=== PATIENT | female | born 1950 | race Caucasian/White ===

== ENCOUNTER 2019-07-08 05:15 | Emergency (ER) | payer OTHER, MEDICARE ==
--- OUTSIDE RECORDS SUMMARY | 2019-07-08 05:17 | XMS REPORT | Clinical Summary ---
:1950 Author Organization [facility] Address [address] [place] [address] Care Team Providers Name Role Phone Nohemi Vargas MD Primary Care Provider Allergies Active Allergy Reactions Severity Noted Date Comments Bee Venom Protein (Honey Swelling, Rash High 08/23/2018 Swelling of bee sting Bee) site Morphine Sulfate Rash Low 04/08/2015 Sulfa (Sulfonamide Rash Low 04/08/2015 Antibiotics) Medications Medication Sig Dispensed Refills Start End Status Date Date levothyroxine Take 112 mcg 0 Active (SYNTHROID, LEVOXYL) by mouth every 112 mcg tablet morning. oxybutynin (DITROPAN) Take 5 mg by 0 Active 5 mg/5 mL syrup mouth 2 (two) times a day. pantoprazole Take 40 mg by 0 Active (PROTONIX) 40 MG EC mouth daily. tablet PARoxetine (PAXIL) 20 Take 20 mg by 0 Active MG tablet mouth every morning. aspirin (ECOTRIN) 81 Take 81 mg by 0 Active MG enteric coated mouth daily. tablet meloxicam (MOBIC) 15 Take 1 tablet 90 tablet 0 09/25/20 Active mg tablet (15 mg total) 18 by mouth daily. cyclobenzaprine Take 10 mg by 0 01/01/20 Active (FLEXERIL) 10 mg mouth as 19 tablet needed. ciclopirox (LOPROX) Apply 1 0 12/26/19 Active 0.77 % suspension application 19 topically daily. zolpidem (AMBIEN) 10 zolpidem 10 mg 0 Active mg tablet tablet fluticasone (FLONASE) 2 sprays by 0 Active 50 mcg/actuation nasal Each Nare spray route daily. promethazine Take 25 mg by 0 Active (PHENERGAN) 25 MG mouth every 6 tablet (six) hours as needed for nausea or vomiting (to start after surgery as per md order). gentamicin (GARAMYCIN) Apply 1 0 Active 0.1 % ointment application topically daily. cyanocobalamin, Take 1 tablet 0 Active vitamin B-12, (VITAMIN by mouth B-12 ORAL) daily. BIOTIN ORAL Take 1 tablet 0 Active by mouth daily. ascorbic acid, vitamin Take 1,000 mg 0 Active C, (vitamin C) 1000 MG by mouth tablet daily. calcium carbonate Take 1 tablet 0 Active (CALCIUM 500 ORAL) by mouth daily. vitamin E 400 UNIT Take 400 Units 0 Active capsule by mouth daily. cholecalciferol, Take 2,000 0 Active vitamin D3, (VITAMIN Units by mouth D3) 2,000 unit capsule daily. capsule omega-3/dha/epa/fish Take 1 tablet 0 Active oil (FISH OIL HIGH by mouth POTENCY ORAL) daily. magnesium oxide Take 400 mg by 0 Active (MAG-OX) 400 mg (241.3 mouth daily. mg magnesium) tablet potassium 99 mg tablet Take 1 tablet 0 Active by mouth daily. meloxicam (MOBIC) 15 Take 1 tablet 30 tablet 1 08/24/20 Discontinued mg tablet (15 mg total) 18 018 (Reorder) by mouth daily. meloxicam (MOBIC) 15 Take 1 tablet 30 tablet 2 12/04/19 Discontinued mg tablet (15 mg total) 19 019 by mouth daily. Start the Mobic AFTER you finish the Medrol Dose [place] methylPREDNISolone Take as directed 21 tablet 0 12/04/19 (MEDROL[place],) 4 mg 19 019 tablet Dispense 1 pack fenoprofen (NALFON) Take 400 mg by 90 capsule 1 12/25/19 400 mg capsule mouth 3 019 (three) times a day for 30 days. Additional information Patient taking differently: 400 mg oral PRN, Informant: Self, Reported on 8:43 AM cephalexin (KEFLEX) Take 1 capsule 8 capsule 0 01/07/2019 01/09/2019 500 MG capsule (500 mg total) by mouth every 6 (six) hours for 2 days. To begin after surgery promethazine Take 1 tablet (25 20 tablet 0 01/07/2019 01/08/2019 Discontinued (PHENERGAN) 25 MG mg total) by tablet mouth every 6 (six) hours as needed for nausea or vomiting for up to 30 days. To begin after surgery gentamicin 0 12/26/2018 01/08/2019 Discontinued (GARAMYCIN) 0.3 % ophthalmic solution HYDROcodone-acetamino Take 1 tablet by 60 tablet 0 01/08/2019 02/07/2019 phen (NORCO) 10-325 mouth every 4 mg per tablet (four) hours as needed for moderate pain for up to 30 days. Max Daily Amount: 6 tablets Active Problems Problem Noted Date Sprain of right rotator cuff capsule 01/04/2019 Overview: Added automatically from request for surgery [id number] Encounters Date Type Specialty Care Team Description 06/10/2019 Office Visit Orthopedic Surgery Dami Bonilla S/Ramy rotator cuff repair MD Amparo (Primary Dx) 04/18/2019 Office Visit Orthopedic Surgery Dami Bonilla S/Ramy rotator cuff repair (Primary Dx); MD Amparo Complete tear of right rotator cuff 03/07/2019 Office Visit Orthopedic Surgery Dami Bonilla Complete tear of right MD Amparo rotator cuff (Primary Dx) 02/14/2019 Office Visit Orthopedic Surgery Dami Bonilla Complete tear of right MD Amparo rotator cuff (Primary Dx) 02/05/2019 Telephone Orthopedic Surgery Quita Vora MA 01/23/2019 Telephone Orthopedic Surgery Quita Vora MA 01/16/2019 Office Visit Orthopedic Surgery Dena, Complete tear of right Leonardo Pineda, rotator cuff (Primary PA Dx) 01/10/2019 Telephone Anesthesiology Soniya Bush, CHANDA 01/09/2019 Anesthesia Event General Surgery Xenia Lopez MD Cheema, Ivelisse, FNP 01/09/2019 Surgery General Surgery Dami Bonilla Right Arthroscopy of MD Amparo the Shoulder with Decompression and Acromioclavicular resection and debridement of loose body, and Open Rotator Cuff Repair 01/09/2019 Hospital General Surgery Dami Bonilla Sprain of right rotator Encounter MD Amparo cuff capsule, subsequent encounter (Primary Dx) 01/08/2019 Pre-Admit Testing Pre-Admission Dami Bonilla Preop testing ( Primary Appointment Testing MD Amparo Dx) 01/08/2019 Orders Only Orthopedic Surgery Quita Vora MA 01/08/2019 Orders Only Orthopedic Surgery Anabel Villegas Sprain of right rotator cuff capsule, initial encounter (Primary Dx) 01/07/2019 Orders Only Orthopedic Surgery Leonardo Fernandes PA 01/04/2019 Orders Only Orthopedic Surgery Gurinder Keating MA 01/04/2019 Transcribe Orders Orthopedic Surgery Dami Bonilla Sprain of right rotator MD Amparo cuff capsule, initial encounter (Primary Dx) 01/03/2019 Office Visit Orthopedic Surgery Dami Bonilla Complete tear of right MD Amparo rotator cuff (Primary Dx) 01/03/2019 Hospital Radiology Dami Bonilla Complete tear of right Encounter MD Amparo rotator cuff 12/25/2018 Office Visit Orthopedic Surgery Dami Bonilla Complete tear of right MD Amparo rotator cuff (Primary Dx) 12/04/2018 Office Visit Orthopedic Surgery Dami Bonilla Strain of right MD Amparo shoulder, initial encounter (Primary Dx) 09/25/2018 Office Visit Orthopedic Surgery Dami Bonilla Impingement syndrome of MD Amparo right shoulder (Primary Dx) 08/24/2018 Refill Orthopedic Surgery Bhavya Arthur MA 08/23/2018 Office Visit Orthopedic Surgery Dami Bonilla Complete tear of right MD Amparo rotator cuff (Primary Dx) 08/23/2018 Hospital Radiology Dami Bonilla Encounter MD Amparo [facility]/23[facility]2018 [facility] Complete tear of right Encounter MD Amparo rotator cuff 08/23/2018 Office Visit Orthopedic Surgery Dami Bonilla Complete tear of right rotator cuff (Primary Dx); MD Amparo Right shoulder pain, unspecified chronicity after 07/07/2018 Immunizations Name Administration Dates Next Due Influenza, Unspecified 08/29/2018 Pneumococcal, Unspecified 09/18/2018 Tdap 08/24/2017 Family History Medical History Relation Name Comments Hyperlipidemia Father Hypertension Father Stroke Father Heart disease Mother Hyperlipidemia Mother Lupus Mother Relation Name Status Comments Brother Alive Brother Father Mother Sister Son Alive Social History Tobacco Use Types Packs/Day Years Used Date Never Smoker Smokeless Tobacco: Never Used Alcohol Use Drinks/Week oz/Week Comments Yes 1 Standard drinks or equivalent 2.0 - 3.0 occassionally 1-2 Glasses of wine Alcohol Habits Answer Date Recorded How often do you have a drink containing alcohol? Never 01/08/2019 How many drinks containing alcohol do you have on a typical Not asked day when you are drinking? How often do you have six or more drinks on one occasion? Not asked Sex Assigned at Date Recorded Not on file Job Start Date Occupation Industry Not on file Not on file Not on file Travel History Travel Start Travel End No recent travel history available. Last Filed Vital Signs Vital Sign Reading Time Taken Comments Blood Pressure 124/75 01/09/2019 1:45 PM SHAFT TENDER Pulse 69 01/09/2019 1:45 PM SHAFT TENDER Temperature 36.8 C (98.3 F) 01/09/2019 1:00 PM SHAFT TENDER Respiratory Rate 16 01/09/2019 1:45 PM SHAFT TENDER Oxygen Saturation 93% 01/09/2019 1:45 PM SHAFT TENDER Inhaled Oxygen Concentration - - Weight 78.7 kg (173 lb 8 oz) 01/08/2019 8:31 AM SHAFT TENDER Height 167.6 cm (5' 6") 01/08/2019 8:31 AM SHAFT TENDER Body Mass Index 28 01/08/2019 8:31 AM SHAFT TENDER Plan of Treatment Date Type Specialty Care Team Description 07/23/2019 Office Visit [place] [address] [place], [place] [id number] Health Maintenance Due Date Last Done Comments BREAST CANCER SCREENING 2001 COLONOSCOPY SCREENING 2001 SHINGLES VACCINES (#1) 2001 INFLUENZA VACCINE 06/20/2019 08/29/2018, 08/13/2018, 09/19/2016, Additional history exists 65+ PNEUMOCOCCAL VACCINE (2 of 2 - 09/18/2019 09/18/2018, 11/29/2017, PPSV23) 07/31/2015 Implants Implanted Type Area Revenue Officer Device Shelf Model / Identifier Expiration Serial / Date Lot [place] [employer] Knotless Br Biocmpst W/ Orthocord 5.5mm - [id number] Orthopedic Right: DEPUY MITEK 04/19/2021 [id number] / Implanted: Qty: 1 on 01/09/2019 by Dami Bonilla MD at [facility] Trauma Shoulder / Implants [id number] [place] [employer] Knotless Br Biocmpst W/ Orthocord 5.5mm - [id number] Orthopedic Right: DEPUY MITEK 04/19/2021 [id number] / Implanted: Qty: 1 on 01/09/2019 by Dami Bonilla MD at [facility] Trauma Shoulder / Implants [id number] Procedures Procedure Name Priority Date/Time Associated Diagnosis Comments VT AN PERIPHERAL BLOCK Routine 01/09/2019 8:47 AM POST-OP PAIN SHAFT TENDER Procedure Note - Xenia Lopez MD - 01/09/2019 8:47 AM SHAFT TENDER Peripheral Block Performed by: Xenia Lopez MD Authorized by: Xenia Lopez MD Patient Location: Block room Start Time: 01/09/2019 8:39 AM End Time: 01/09/2019 8:47 AM Reason for Block: at surgeon's request, post-op pain management Staff: Anesthesiologist: Xenia Lopez MD Performed by: Anesthesiologist Preprocedure: patient identified, IV checked, site and side verified, risks and benefits discussed, procedure verified, surgical consent complete, patient position confirmed, monitors and equipment checked, pre-op evaluation complete and site marked Time Out Performed: 01/09/2019 8:39 AM Peripheral Nerve Block: Patient Position: Left lateral decubitus Prep: ChloraPrep Monitoring: Blood pressure monitoring and continuous pulse oximetry Block Type: Interscalene Laterality: Right Injection Technique: Catheter insertion Procedures: ultrasound guided and nerve stimulator Ultrasound documentation: Printed/placed in chart Local Infiltration (See MAR for details): Ropivacaine Loss of Twitch: 0.5 mA Needle: Needle Type: Merry Needle Gauge: 19 G Needle Length: 10 cm Catheter size: 20g. Catheter at Skin Depth: 7 cm Assessment: Injection Assessment: Visualized needle/local anesthetic surrounding nerve , visualized pertinent vascular structures and nerves, needle tip visualized at all times during injection of medication, intermittent aspiration during local anesthetic administration and no symptoms of intraneural/intravenous injection Paresthesia Pain: None Heart Rate Change: No Slow Fractionated Injection: Yes Block outcome: No apparent complications, patient comfortable and patient tolerated procedure well Notes: Care returned to holding RN, patient given call button POC GLUCOSE Routine 01/09/2019 8:11 Results for this AM SHAFT TENDER procedure are in the results section. ESTIMATED GFR Routine 01/08/2019 9:38 Results for this AM SHAFT TENDER procedure are in the results section. HC COMPLETE BLD COUNT Routine 01/08/2019 9:38 Preop testing Results for this W/AUTO DIFF AM SHAFT TENDER procedure are in the results section. BASIC METABOLIC PANEL Routine 01/08/2019 9:38 Preop testing Results for this AM SHAFT TENDER procedure are in the results section. MRI SHOULDER WO Routine 01/03/2019 1:33 Complete tear of Results for this CONTRAST RIGHT PM SHAFT TENDER right rotator cuff procedure are in the results section. VT ARTHROCENTESIS Routine 12/25/2018 10:00 Complete tear of Results for this ASPIR&/INJ MAJOR AM SHAFT TENDER right rotator cuff procedure are in JT/BURSA W/O US the results section. VT ARTHROCENTESIS Routine 08/23/2018 2:20 Complete tear of Results for this ASPIR&/INJ MAJOR PM CDT right rotator cuff procedure are in JT/BURSA W/O US the results section. MRI SHOULDER WO STAT 08/23/2018 1:31 Complete tear of Results for this CONTRAST RIGHT PM CDT right rotator cuff procedure are in the results section. XR SHOULDER 2+ VW RIGHT Routine 08/23/2018 9:50 Right shoulder Results for this AM CDT pain, unspecified procedure are in chronicity the results section. after 07/07/2018 Results POC glucose (01/09/2019 8:11 AM SHAFT TENDER) Pathologist [facility] POC glucose 102 (H) 65 - 99 mg/dL NICKOLAS MARSH Comment: [facility] No Action Needed Meter ID: [id number] Health And Safety Tech: Hussein Espinoza Specimen Performing Organization Address City/State/Zipcode Phone Number [facility] DEPARTMENT OF PATHOLOGY [address] [place] [address] AND GENOMIC MEDICINE NICKOLAS MARSH [place] [address] Estimated GFR (01/08/2019 9:38 AM SHAFT TENDER) [facility] Estimated GFR 77 mL/min/1.73 NICKOLAS MARSH Comment: m2 [place] CatergoryUnitsInterpretation [facility] G1 >=90 Normal or high G2 60-89Mildly decreased L3w88-55Omrdfg to moderately decreased D7b20-90Tutnyfaprt to severely decreased G4 15-29Severely decreased G5 <15Kidney failure The eGFR was calculated using the Chronic Kidney Disease Epidemiology Collaboration (CKD-EPI) equation. Interpretation is based on recommendations of the National Kidney Foundation-Kidney Disease Outcomes Quality Initiative (NKF-KDOQI) published in 2014. Specimen Plasma specimen Performing Organization Address City/[facility]/Zipcode Phone Number [facility] DEPARTMENT OF PATHOLOGY [address] [place] [address] AND [facility] [id number] [place] [address] HOSPITAL CBC with platelet and differential (01/08/2019 9:38 AM SHAFT TENDER) WBC 5.0 4.5 - 11.0 k/uL [facility] RBC 4.58 4.20 - 5.50 [facility] m/uL [facility] HGB 13.8 12.0 - 16.0 [facility] g/dL [facility] HCT 43.2 37.0 - 47.0 % [facility] MCV 94.3 82.0 - 100.0 fL [facility] MCH 30.1 27.0 - 34.0 pg [facility] MCHC 31.9 31.0 - 37.0 [facility] g/[facility] RDW - SD 41.2 37.0 - 55.0 fL [facility] MPV 10.7 6.9 - 11.0 fL [facility] Platelet count 155 150 - 400 K/uL [facility] Nucleated RBC 0.00 /100 WBC [facility] Neutrophils 48.9 39.0 - 69.0 % [facility] Lymphocytes 35.7 25.0 - 45.0 % [facility] Monocytes 10.4 (H) 0.0 - 10.0 % [facility] Eosinophils 4.2 0.0 - 5.0 % [facility] Basophils 0.4 0.0 - 1.0 % [facility] Immature granulocytes 0.4 0.0 - 1.0 % [facility] Specimen Blood Performing Organization Address City/[facility]/Zipcode Phone Number [facility] DEPARTMENT OF PATHOLOGY [address] [place] [address] AND [facility] [id number] [place] [address] Basic metabolic panel (01/08/2019 9:38 AM SHAFT TENDER) Sodium 143 135 - 148 mEq/L [facility] Potassium 4.8 3.5 - 5.0 mEq/L [facility] Chloride 102 98 - 112 mEq/L [facility] CO2 31 24 - 31 mEq/L [facility] Anion gap 10@ANIO 7 - 15 mEq/L [facility] BUN 10 8 - 23 mg/dL [facility] Creatinine 0.79 0.50 - 0.90 mg/dL [facility] Glucose 95 65 - 99 mg/dL [facility] Calcium 9.4 8.8 - 10.2 mg/dL [facility] Specimen Plasma specimen Performing Organization Address City/State/Zipcode Phone Number [facility] DEPARTMENT OF PATHOLOGY [address] [place] [address] MRI Shoulder Wo Contrast Right (01/03/2019 1:33 PM SHAFT TENDER)Only the most recent of2 resultswithin the time period is included. Specimen Narrative Performed At EXAMINATION:MRI SHOULDER WO CONTRAST RIGHT [facility] CLINICAL HISTORY:M75.121 Complete rotator cuff tear or rupture of right shouldernot specified as traumatic, right shoulder pain TECHNIQUE:Multiplanar multisequence MR imaging of the [facility] was performed without contrast. COMPARISON:MRI right shoulder 08/23/2018 IMPRESSION: ROTATOR CUFF: Full-thickness, full width supraspinatus tear has developed in the interval, with retraction most pronounced posteriorly nearly up to the glenohumeral joint, up to 40 mm. Mild to moderate volumetric atrophy, and mild fatty peritendinous atrophy. Full-thickness, near full width infraspinatus tear with retraction nearly to the glenohumeral joint, up to 35 mm. The posterior margin is relatively spared with only partial tearing posteriorly. Interstitial tearing at the infraspinatus myotendinous junction posteriorly measuring 5 mm sagittal with retraction of 10 mm. Mild fatty atrophy, though no volumetric muscle loss. Teres minor well maintained. Low-grade interstitial partial tearing cranially in the subscapularis, otherwise well-maintained. LABRUM: Nondisplaced posterior chondral labral tear most pronounced superiorly. Surgical metal blunting elsewhere. BICEPS TENDON: The extra-articular long head biceps tendon is markedly diminutive in size, though remains normally positioned within the bicipital groove. Small mass running fluid and heterogeneous sign al indicating tenosynovitis. The intra-articular portion is not well seen, and at least partially torn GLENOHUMERAL JOINT: Superior subluxation of the humeral head in association with the massive cuff tear. Full-thickness chondral loss superiorly in the humeral head. BONE MARROW: Reactive change in the greater tuberosity related to the aforementioned cuff pathology. AC JOINT: Widening of the AC joint most pronounced anteriorly measuring 13 mm, though there is no capsular edema. Findings indicate chronic sprain. Coracoclavicular ligaments are well-maintained. Acromi on has a horizontal lateral slope and is type II morphology. SOFT TISSUES: Small joint effusion and mild synovitis in the axillary pouch. Fluid and heterogeneous signal within the subacromial-subdeltoid bursa indicating mild to moderate bursitis. Myoedema in the supraspinatus and infraspinous indicating acute on chronic process. Visualized deltoid well-maintained. SUMMARY: 1. Complete supraspinatus and near-complete infraspinatus tears with associated atrophy and mild strains, as detailed above. Low-grade interstitial partial tearing of subscapularis. 2.Atrophic long head biceps tendon with extra articular tenosynovitis, and at least high-grade partial tearing of the intra-articular portion. 3.Nondisplaced posterior chondral labral junction tear. 4.Incidental and/or degenerative changes as above. [facility]-[id number] Procedure Note Hm Interface, Radiology Results Incoming - 01/03/2019 2:13 PM SHAFT TENDER EXAMINATION: MRI SHOULDER WO CONTRAST RIGHT CLINICAL HISTORY: M75.121 Complete rotator cuff tear or rupture of right shoulder not specified as traumatic, right shoulder pain TECHNIQUE: Multiplanar multisequence MR imaging of the right shoulder was performed without contrast. COMPARISON: MRI right shoulder 08/23/2018 IMPRESSION: ROTATOR CUFF: Full-thickness, full width supraspinatus tear has developed in the interval, with retraction most pronounced posteriorly nearly up to the glenohumeral joint, up to 40 mm. Mild to moderate volumetric atrophy, and mild fatty peritendinous atrophy. Full-thickness, near full width infraspinatus tear with retraction nearly to the glenohumeral joint, up to 35 mm. The posterior margin is relatively spared with only partial tearing posteriorly. Interstitial tearing at the infraspinatus myotendinous junction posteriorly measuring 5 mm sagittal with retraction of 10 mm. Mild fatty atrophy, though no volumetric muscle loss. Teres minor well maintained. Low-grade interstitial partial tearing cranially in the subscapularis, otherwise well-maintained. LABRUM: Nondisplaced posterior chondral labral tear most pronounced superiorly. Surgical metal blunting elsewhere. BICEPS TENDON: The extra-articular long head biceps tendon is markedly diminutive in size, though remains normally positioned within the bicipital groove. Small mass running fluid and heterogeneous signal indicating tenosynovitis. The intra-articular portion is not well seen, and at least partially torn GLENOHUMERAL JOINT: Superior subluxation of the humeral head in association with the massive cuff tear. Full-thickness chondral loss superiorly in the humeral head. BONE MARROW: Reactive change in the greater tuberosity related to the aforementioned cuff pathology. AC JOINT: Widening of the AC joint most pronounced anteriorly measuring 13 mm, though there is no capsular edema. Findings indicate chronic sprain. Coracoclavicular ligaments are well-maintained. Acromion has a horizontal lateral slope and is type II morphology. SOFT TISSUES: Small joint effusion and mild synovitis in the axillary pouch. Fluid and heterogeneous signal within the subacromial-subdeltoid bursa indicating mild to moderate bursitis. Myoedema in the supraspinatus and infraspinous indicating acute on chronic process. Visualized deltoid well-maintained. SUMMARY: 1. Complete supraspinatus and near-complete infraspinatus tears with associated atrophy and mild strains, as detailed above. Low-grade interstitial partial tearing of subscapularis. 2. Atrophic long head biceps tendon with extra articular tenosynovitis, and at least high-grade partial tearing of the intra-articular portion. 3. Nondisplaced posterior chondral labral junction tear. 4. Incidental and/or degenerative changes as above. [facility]-[id number] Performing Organization Address City/State/Zipcode Phone Number [facility] [address] [place] [address] Large Joint Arthrocentesis: shoulder, R subacromial bursa (12/25/2018 10:00 AM SHAFT TENDER) Narrative Performed At Dami Bonilla MD 12/25/2018 10:25 AM Large Joint Arthrocentesis: shoulder, R subacromial bursa Consent given by: patient Timeout: Immediately prior to procedure a time out was called to verify the correct patient, procedure, equipment, desktop support consultant and site/side marked as required Supporting Documentation Indications: pain Procedure Details Preparation: Patient was prepped and draped in the usual sterile fashion Ultrasound guided: no Location: shoulder - R subacromial bursa Right side: Needle size: 22 G Approach: lateral Right shoulder medications administered: 80 mg methylPREDNISolone acetate 40 mg/mL Large Joint Arthrocentesis (08/23/2018 2:20 PM CDT) Narrative Performed At Dami Bonilla MD 08/23/20182:03 PM Large Joint Arthrocentesis Consent given by: patient Timeout: Immediately prior to procedure a time out was called to verify the correct patient, procedure, equipment, desktop support consultant and site/side marked as required Supporting Documentation Indications: pain Procedure Details Preparation: Patient was prepped and draped in the usual sterile fashion Ultrasound guided: no Location: shoulder - R subacromial bursa Right side: Needle size: 22 G Approach: lateral XR Shoulder 2+ Vw Right (08/23/2018 9:50 AM CDT) Specimen Narrative Performed At 3 views (AP, scapular Y, axillary) of the right shoulder(s) reveal no [facility] evidence of any fracture, dislocation, or any other acute osseous abnormalities. Performing Organization Address City/State/Zipcode Phone Number [facility] [id number] [place] [address] after 07/07/2018 Insurance Payer Benefit Plan / Subscriber ID Effective Dates Phone Address Type Group MEDICARE MEDICARE PART A xxxxxxxxxxx 2016-[place], [place] Medicare AND B t AARP AARP SUPPLEMENT xxxxxxxxxxx 2018-Present Commercial Advance Directives Type Date Recorded Patient Promotional Model Explanation Advance Directives, Living Will 08/23/2018 11:13 AM and Medical Power of Medical Videographer
[2019-07-08] MEDS ORDERED: KETOROLAC 30 MG/ML INJ ONE (05:37)
[2019-07-08 06:34] LABS: Absolute Lymphocytes (CBC) 0.9 K/uL (0.7-4.9); Basophils % 0.2 % (0-1.3); Hematocrit 37.6 % (36.0-45.0); Lymphocytes % 12.6 % (15.3-44.8); RBC Red Blood Cell Count 4.27 M/uL (3.86-4.86)
[2019-07-08 06:47] LABS: Albumin 3.7 g/dL (3.4-5.0); Bilirubin Direct 0.2 mg/dL (0-0.2); Bilirubin Total 0.6 mg/dL (0.2-1.0); Potassium 3.8 mmol/L (3.5-5.1)
--- NOTE | 2019-07-08 07:21 | RAD REPORT ---
EXAM DESCRIPTION: US - Abdomen Exam Limited - 07/08/2019 7:06 am CLINICAL HISTORY: Abdominal pain, right upper quadrant pain COMPARISON: None. FINDINGS: No gallstones, sludge or other abnormalities within the gallbladder lumen. There is no wal l thickening or pericholecystic fluid. Gallbladder is distended but not dilated. No common duct stone or biliary tree dilatation identified. IMPRESSION: Distended but not dilated gallbladder with no stones, sludge or other significant findin g. No duct stone or biliary tree dilatation identified.
[2019-07-08 07:53] LABS: Urine Bacteria NONE SEEN /HPF (<20); Urine Culture Reflex Order NOT NEEDED; Urine RBC NONE SEEN /HPF (NONE SEEN)
--- NOTE | 2019-07-08 08:21 | ER ---
Nurse's Notes [facility] Name: Aaliyah Dennis Age: 68 yrs Sex: Female : 1950 Arrival Date: 07/08/2019 Time: 05:16 Bed 7 Private MD: Diagnosis: Upper abdominal pain, unspecified Presentation: 07/08 05:22 Presenting complaint: Patient states: RUQ pain since 2300 last night. Denies N/V/D. aa1 Transition of care: patient was not received from another setting of care. Onset of symptoms was July 07, 2019 at 23:00. Risk Assessment: Do you want to hurt yourself or someone else? Patient reports no desire to harm self or others. Initial Sepsis Screen: Does the patient meet any 2 criteria? No. Patient's initial sepsis screen is negative. Does the patient have a suspected source of infection? Yes: Acute abdominal pain. Care prior to arrival: None. 05:22 Method Of Arrival: EMS: [facility] aa1 05:22 Acuity: PAUL 3 aa1 Triage Assessment: 05:25 General: Appears in no apparent distress. comfortable, Behavior is calm, cooperative, aa1 appropriate for age. Historical: - Allergies: 05:25 STINGS - must carry EPI pen; aa1 05:25 Sulfa (Sulfonamide Antibiotics); aa1 05:25 Morphine; aa1 - Home Meds: 05:25 aspirin 81 mg Oral chew 1 tab once daily [Active]; levothyroxine 112 mcg tab 1 tab once aa1 daily for Hypothyroidism [Active]; Multiple Vitamins Oral tab [Active]; ciclopirox 0.77 % topical crea daily [Active]; cyclobenzaprine 10 mg Oral tab daily [Active]; fenoprofen 600 mg oral tab 1 tab 3 times per day [Active]; meloxicam 15 mg oral tab 1 tab once daily [Active]; oxybutynin chloride 10 mg Oral tr24 1 tab once daily [Active]; Protonix 40 mg Oral TbEC 1 tab once daily [Active]; paroxetine HCl 40 mg oral tab 1 tab once daily [Active]; tramadol 50 mg Oral tab as needed [Active]; - PMHx: 05:25 Hypothyroidism; Anxiety; Gastric Reflux; aa1 - PSHx: 05:25 ; Knee surgery; right rotator cuff replacement; ovary cyst removal; aa1 Hysterectomy; plate and pin removal christian ankle/femur; - Immunization history:: Flu vaccine is up to date. - Social history:: Smoking status: Patient/guardian denies using tobacco. - Ebola Screening: : No symptoms or risks identified at this time. Screenin:35 Abuse screen: Denies threats or abuse. Nutritional screening: No deficits noted. ea Tuberculosis screening: No symptoms or risk factors identified. Fall Risk None identified. Assessment: 05:34 General: Appears in no apparent distress. Behavior is calm, cooperative, appropriate ea for age. Pain: Complains of pain in right upper quadrant. Neuro: Level of Consciousness is awake, alert, obeys commands, Oriented to person, place, time, situation. Cardiovascular: Patient's skin is warm and dry. Respiratory: Airway is patent Respiratory effort is even, unlabored, Respiratory pattern is regular, symmetrical. GI: Bowel sounds present X 4 quads. Abdomen is tender to palpation in right upper quadrant. Derm: Skin is pink, warm \T\ dry. 07:18 Reassessment: Patient appears in no apparent distress at this time. Patient and/or jl7 family updated on plan of care and expected duration. Pain level reassessed. Patient is alert, oriented x 3, equal unlabored respirations, skin warm/dry/pink. Patient denies pain at this time. Vital Signs: 05:19 BP 122 / 67; Pulse 70; Resp 16; Temp 98.9(O); Pulse Ox 98% on R/A; Pain 1/10; oe 05:25 Weight 76.2 kg; Height 5 ft. 6 in. (167.64 cm); aa1 06:35 BP 107 / 48; Pulse 66; Resp 16; Pulse Ox 96% on R/A; ak1 07:18 BP 124 / 64; Pulse 62; Resp 16 S; Pulse Ox 98% on R/A; Pain 0/10; jl7 05:25 Body Mass Index 27.12 (76.20 kg, 167.64 cm) aa1 ED Course: 05:16 Patient arrived in ED. ag3 05:22 Ramón Schultz MD is Attending Physician. tw4 05:23 Triage completed. aa1 05:25 Arm band placed on right wrist. aa1 05:36 Patient has correct armband on for positive identification. Bed in low position. Call ea light in reach. Side rails up X2. 07:00 Maintain EMS IV. Dressing intact. Good blood return noted. Site clean \T\ dry. Gauge \T\ jl 7 site: 18 g left AC. 07:03 US Abdomen Limited In Process Unspecified. EDMS 07:05 Attending Physician role handed off by Ramón Schultz MD rn 07:05 Triston Austin MD is Attending Physician. rn 07:07 Tripp Ashby RN is Primary Nurse. jl7 07:23 Urine collected: clean catch specimen, clear, Amount Voided: 240mL. 5 07:24 Urine Microscopic Only Sent. 5 07:26 Urine Dipstick--Ancillary (enter results) Sent. jl7 07:27 Basic Metabolic Panel Sent. jl7 08:29 No provider procedures requiring assistance completed. IV discontinued, intact, jl7 bleeding controlled, No redness/swelling at site. Pressure dressing applied. Administered Medications: 05:36 CANCELLED (Inappropriate at this time): NS 0.45 % with KCl 20 mEq/L 1000 ml IV at 125 ak1 ml/hr once 05:42 Drug: TORadol 30 mg Route: IVP; Site: left antecubital; ak1 06:07 Follow up: Response: No adverse reaction; Pain is decreased ak1 05:42 Drug: NS 0.9% 1000 ml {Note: continuation of EMS IV fluids 1000mL bag.} Route: IV; ak1 Rate: 125 ml/hr; Site: left antecubital; 07:30 Follow up: IV Status: Completed infusion jl7 Outcome: 08:21 Discharge ordered by . rn 08:29 Discharged to home ambulatory. jl7 08:29 Condition: stable 08:29 Discharge instructions given to patient, Instructed on discharge instructions, follow up and referral plans. medication usage, Demonstrated understanding of instructions, follow-up care, medications, Prescriptions given X 2. 08:30 Patient left the ED. jl7 Signatures: Dispatcher [employer] EDLA Padmini Burns RN RN aa1 Triston Austin MD MD rn Krenek, Amber, RN RN ak1 Gurmeet Nevarez [facility] Tripp Ashby RN RN jl7 Ruiz, Crystal, RN RN ea [place], Ramón, MD MD tw4 Pratt, Jess ag3
--- NOTE | 2019-07-08 08:22 | EDPHYS ---
Physician Documentation [facility] Name: Aaliyah Dennis Age: 68 yrs Sex: Female : 1950 Arrival Date: 07/08/2019 Time: 05:16 Bed 7 Private MD: ED Physician Triston Austin HPI: 07/08 05:23 This 68 yrs old Female presents to ER via EMS with complaints of Abdominal tw4 Pain. 05:23 The patient presents with abdominal pain. Onset: The symptoms/episode began/occurred 6 tw4 hour(s) ago. The symptoms do not radiate. Associated signs and symptoms: none. The symptoms are described as crampy. Modifying factors: The symptoms are alleviated by nothing, the symptoms are aggravated by nothing. Severity of pain: At its worst the pain was moderate in the emergency department the pain is unchanged. The patient has not experienced similar symptoms in the past. Historical: - Allergies: 05:25 STINGS - must carry EPI pen; aa1 05:25 Sulfa (Sulfonamide Antibiotics); aa1 05:25 Morphine; aa1 - Home Meds: 05:25 aspirin 81 mg Oral chew 1 tab once daily [Active]; levothyroxine 112 mcg tab 1 tab once aa1 daily for Hypothyroidism [Active]; Multiple Vitamins Oral tab [Active]; ciclopirox 0.77 % topical crea daily [Active]; cyclobenzaprine 10 mg Oral tab daily [Active]; fenoprofen 600 mg oral tab 1 tab 3 times per day [Active]; meloxicam 15 mg oral tab 1 tab once daily [Active]; oxybutynin chloride 10 mg Oral tr24 1 tab once daily [Active]; Protonix 40 mg Oral TbEC 1 tab once daily [Active]; paroxetine HCl 40 mg oral tab 1 tab once daily [Active]; tramadol 50 mg Oral tab as needed [Active]; - PMHx: 05:25 Hypothyroidism; Anxiety; Gastric Reflux; aa1 - PSHx: 05:25 ; Knee surgery; right rotator cuff replacement; ovary cyst removal; aa1 Hysterectomy; plate and pin removal christian ankle/femur; - Immunization history:: Flu vaccine is up to date. - Social history:: Smoking status: Patient/guardian denies using tobacco. - Ebola Screening: : No symptoms or risks identified at this time. ROS: 05:23 Constitutional: Negative for fever, chills, and weight loss, Cardiovascular: Negative tw4 for chest pain, palpitations, and edema, Respiratory: Negative for shortness of breath, cough, wheezing, and pleuritic chest pain, Back: Negative for injury and pain, MS/Extremity: Negative for injury and deformity, Skin: Negative for injury, rash, and discoloration, Neuro: Negative for headache, weakness, numbness, tingling, and seizure. 05:23 Abdomen/GI: Positive for abdominal pain, Negative for nausea and vomiting, nausea, vomiting, and diarrhea, nausea, vomiting. Exam: 05:23 Constitutional: This is a well developed, well nourished patient who is awake, alert, tw4 and in no acute distress. Head/Face: Normocephalic, atraumatic. 05:23 Chest/axilla: Normal chest wall appearance and motion. Nontender with no deformity. tw4 No lesions are appreciated. Cardiovascular: Regular rate and rhythm with a normal S1 and S2. No gallops, murmurs, or rubs. Normal PMI, no JVD. No pulse deficits. Respiratory: Lungs have equal breath sounds bilaterally, clear to auscultation and percussion. No rales, rhonchi or wheezes noted. No increased work of breathing, no retractions or nasal flaring. Abdomen/GI: Soft, non-tender, with normal bowel sounds. No distension or tympany. No guarding or rebound. No evidence of tenderness throughout. Back: No spinal tenderness. No costovertebral tenderness. Full range of motion. MS/ Extremity: Pulses equal, no cyanosis. Neurovascular intact. Full, normal range of motion. Neuro: Awake and alert, GCS 15, oriented to person, place, time, and situation. Cranial nerves II-XII grossly intact. Motor strength 5/5 in all extremities. Sensory grossly intact. Cerebellar exam normal. Normal gait. Vital Signs: 05:19 BP 122 / 67; Pulse 70; Resp 16; Temp 98.9(O); Pulse Ox 98% on R/A; Pain 1/10; oe 05:25 Weight 76.2 kg; Height 5 ft. 6 in. (167.64 cm); aa1 06:35 BP 107 / 48; Pulse 66; Resp 16; Pulse Ox 96% on R/A; ak1 07:18 BP 124 / 64; Pulse 62; Resp 16 S; Pulse Ox 98% on R/A; Pain 0/10; jl7 05:25 Body Mass Index 27.12 (76.20 kg, 167.64 cm) aa1 MDM: 05:22 Patient medically screened. tw4 05:23 Data reviewed: vital signs, nurses notes. Data interpreted: Pulse oximetry: is not tw4 applicable for this patient encounter. Counseling: I had a detailed discussion with the patient and/or guardian regarding: the historical points, exam findings, and any diagnostic results supporting the discharge/admit diagnosis. Special discussion: I discussed with the patient/guardian in detail that at this point there is no indication for admission to the hospital. It is understood, however, that if the symptoms persist or worsen the patient needs to return immediately for re-evaluation. 07:06 ED course: Signed out to me by Dr. Schultz pending u/s of gallbladder, normal WBC, rn normal LFTs, will reeval.. 08:19 Differential diagnosis: cholecystitis, Cholelithiasis, gastritis, gastroesophageal rn reflux disease, pancreatitis, Peptic Ulcer Disease. ED course: Pain resolved, U/S whows slightly distended gallbladder but no stones/inflammation/PCF. Normal CBD. Normal bloodwork. Most likely poorly functioning gallbladder, recommend outpt HIDA scan by pcp and GI f/u. Return precautions given and dietary modifications given.. 07/08 05:26 Order name: Basic Metabolic Panel 07/08 05:26 Order name: CBC with Diff; Complete Time: 07:04 ea 07/08 05:26 Order name: Creatinine for Radiology; Complete Time: 07:04 ea 07/08 05:26 Order name: Hepatic Function; Complete Time: 07:04 ea 07/08 05:26 Order name: Lipase; Complete Time: 07:04 ea 07/08 05:30 Order name: Urine Microscopic Only tw4 07/08 05:26 Order name: IV Saline Lock; Complete Time: 05:26 ea 07/08 05:26 Order name: Labs collected and sent; Complete Time: 05:26 07/08 06:14 Order name: US Abdomen Limited; Complete Time: 07:24 tw4 07/08 06:23 Order name: Basic Metabolic Panel; Complete Time: 07:04 EDAZ 08/19 07:24 Order name: Urine Dipstick--Ancillary (enter results) bd 07/08 05:30 Order name: Urine Dipstick-Ancillary (obtain specimen); Complete Time: 07:18 tw4 Administered Medications: 05:36 CANCELLED (Inappropriate at this time): NS 0.45 % with KCl 20 mEq/L 1000 ml IV at 125 ak1 ml/hr once 05:42 Drug: TORadol 30 mg Route: IVP; Site: left antecubital; ak1 06:07 Follow up: Response: No adverse reaction; Pain is decreased ak1 05:42 Drug: NS 0.9% 1000 ml {Note: continuation of EMS IV fluids 1000mL bag.} Route: IV; ak1 Rate: 125 ml/hr; Site: left antecubital; 07:30 Follow up: IV Status: Completed infusion jl7 Disposition: 07/08/19 08:21 Discharged to Home. Impression: Upper abdominal pain, unspecified. - Condition is Stable. - Discharge Instructions: Abdominal Pain, Adult. - Prescriptions for Zofran ODT 4 mg Oral tablet,disintegrating - place 1 tablet by TRANSLINGUAL route every 8 hours As needed; 20 tablet. Tylenol- Codeine #3 300-30 mg Oral Tablet - take 1 tablet by ORAL route every 6 hours As needed; 20 tablet. - Medication Reconciliation Form, Thank You Letter, Antibiotic Education, Prescription Opioid Use form. - Follow up: Private Physician; When: As needed; Reason: Recheck today's complaints, Re-evaluation by your physician. - Problem is new. - Symptoms have improved. Signatures: Dispatcher [employer] EDPadmini Molina RN RN aa1 Triston Austin MD MD rn Krenek, Amber RN RN ak1 Tripp Ashby RN RN jl7 Crystal Ruiz RN Ramón Baltazar ea, MD MD tw4 Corrections: (The following items were deleted from the chart) 05:25 05:23 Constitutional: Negative for fever, chills, and weight loss, Eyes: Negative for tw4 injury, pain, redness, and discharge, Cardiovascular: Negative for chest pain, palpitations, and edema, Respiratory: Negative for shortness of breath, cough, wheezing, and pleuritic chest pain, Abdomen/GI: Negative for abdominal pain, nausea, vomiting, diarrhea, and constipation, Back: Negative for injury and pain, Neuro: Negative for headache, weakness, numbness, tingling, and seizure, tw4 05:36 05:30 NS 0.45 % with KCl 20 mEq/L 1000 ml IV at 125 ml/hr once ordered. tw4 ak1 08:30 08:21 07/08/2019 08:21 Discharged to Home. Impression: Upper abdominal pain, jl7 unspecified. Condition is Stable. Forms are Medication Reconciliation Form, Thank You Letter, Antibiotic Education, Prescription Opioid Use. Follow up: Private Physician; When: As needed; Reason: Recheck today's complaints, Re-evaluation by your physician. Problem is new. Symptoms have improved. rn
[2019-07-08 09:00] LABS: Urine Blood TRACE (NEG); Urine Glucose NEGATIVE (NEG); Urine Protein NEGATIVE (NEG)
== END 2019-07-08 08:30 | disposition home or self-care (01) ==
LOC: ER 05:15
DX: R10.10 Upper abdominal pain, unspecified (principal); E03.9 Hypothyroidism, unspecified; F41.9 Anxiety disorder, unspecified; K21.9 Gastro-esophageal reflux disease without esophagitis; Z88.2 Allergy status to sulfonamides; Z88.6 Allergy status to analgesic agent; Z91.030 Bee allergy status
CPT/HCPCS: 36415; 76705; 80048; 80076; 81003; 81015; 83690; 85025; 96361; 96374; 99284

== ENCOUNTER 2023-04-01 20:03 | Emergency (ER) | payer MEDICARE, OTHER ==
--- OUTSIDE RECORDS SUMMARY | 2023-04-01 20:15 | XMS REPORT | Continuity of Care Document ---
:1950 Author Organization [facility] t Address [address] [place] [address] Care Team Providers Name Role Phone Sudeep MANTILLA, Michael Fajardo Primary Care Physician [phone] Mac Bonilla MD Attending Clinician STEPHANY Attending Clinician Unavailable Nohemi Vargas Attending Clinician [phone] stephany Attending Clinician Unavailable DR JOSÉ KAHN Attending Clinician Unavailable JOSÉ KAHN Attending Clinician Unavailable STEPHANY Admitting Clinician Unavailable stephany Admitting Clinician Unavailable DR JOSÉ KAHN Admitting Clinician Unavailable Payers Payer Name Policy Type Policy Number Effective Date Expiration Date S yunior [employer] (MEDICARE [id number] 2023 REPLACEMENT PPO) 00:00:00 [facility] - [id number] [facility] (MEDICARE REPLACEMENT/ADVANTA GE - PPO) [facility] [id number] (MEDICARE REPLACEMENT/ADVANTA GE - PPO) MEDICARE [place]: [id number] 2016 [employer] SOLUTIONS 00:00:00 [facility] [id number] 2017 OPTIONS (MEDICARE 00:00:00 SUPPLEMENT) [facility] [id number] 2016 OPTION - PLAN F 00:00:00 (MEDICARE SUPPLEMENT) Problems Condition Condition Condition Status Onset Resolution Last Treating Co mments Source Name Details Category Date Date Treatment Clinician Date Low back Low Back Problem Active [facility] pain Pain 08-01 Communi 00:00: ty 00 [facility] Myalgia/my Myalgia/my Problem Active S weeny ositis - ositis - 08-01 Commun i multiple Multiple 00:00: ty 00 [facility] Headache Headache Problem Active Sween y 08-01 Communi 00:00: ty 00 [facility] Injury of Injury of Problem Active Swe michelle head Head 08-01 Communi 00:00: ty 00 [facility] Pain of Pain of Problem Active [place] left hip Left Hip 08-01 Commun i joint Joint 00:00: ty 00 [facility] Osteoarthr Osteoarthr Problem Active 2020-11 S weeny itis itis 11-22 Communi 00:00: ty 00 [facility] Laceration Laceration Problem Active 2020-11 S weeny of skin of Skin 11-22 Communi 00:00: ty 00 [facility] Feeling Feeling Problem Active [place] irritable Irritable 06-22 Comm uni 00:00: ty 00 [facility] Pre-surger Pre-surger Problem Active S weeny y y - Communi evaluation Evaluation 00:00: ty 00 [facility] Intolerant Intolerant Problem Active S weeny of heat of Heat 04-09 Communi 00:00: ty 00 [facility] Sprain of Sprain of Disease Active Overview: [facility] right right 2-[address] rotator rotator 00:00: g of this Hospi ta cuff cuff 00 note l capsule capsule might be different from the original. Added automatic ally from request for surgery [id number] Abnormalit Abnormalit Problem Active S weeny y of nail y of Nail - Comm uni of toe of Toe 00:00: ty 00 [facility] Shoulder Shoulder Problem Active [place] pain Pain 11-26 Communi 00:00: ty 00 [facility] Malaise Malaise Problem Active [place] 9-18 Communi 00:00: ty 00 [facility]ospita Clinics Indigestio Indigestio Problem Active S weeny n n 5-01 Communi 00:00: ty 00 Hospita Clinics Hypothyroi Hypothyroi Problem Active S weeny dism dism 4-10 Communi 00:00: ty 00 Hospita Clinics Insomnia Insomnia Problem Active [facility] y 4-10 Communi 00:00: ty 00 Hospita Clinics Urge Urge Problem Active [place] incontinen Incontinen 4-10 Co mmuni ce of ce of 00:00: ty urine Urine 00 Hospita Clinics Allergies, Adverse Reactions, Alerts Allergy Allergy Status Severity Reaction(s) Onset Inactive Treating Comm ents Source Name Type Date Date Clinician Bee Propensi Active Rash 2017-11 Swelling Method i Venom ty to 0-[address] Protein adverse 00:00: sting Hospita (Honey reaction 00 site l Bee) s to drug Morphine Propensi Active Rash Method i Sulfate ty to 5-20 st adverse 00:00: Hospita reaction 00 l s to drug Sulfa Propensi Active Rash [facility] (Sulfona ty to 5-20 st mide adverse 00:00: Hospita Antibiot reaction 00 l ics) s to drug SULFA Allergy Active [place] (SULFONA to Communi MIDE substanc ty ANTIBIOT e Hospita ICS) l Clinics Morphine DA Active Unknown [facility] Sulfa DA Active Unknown [facility] (Sulfona Medical mides) Center BEE Allergy Active [place] VENOM to Communi PROTEIN substanc ty (HONEY e Hospita BEE) l Clinics Morphine Allergy Active [place] to Communi substanc ty e Hospita l Clinics Family History Family Member Diagnosis Comments Start Date Stop Date Source Natural brother [facility] Natural [facility] Natural father Heart disease [facility] Natural father Hyperlipidemia Method [facility] Natural father Hypertension [facility] father Stroke [facility] Maternal aunt [facility] Maternal aunt Liver disease [facility] mother Blood Clots [facility] mother Cancer [facility] Natural mother Heart disease [facility] mother Hyperlipidemia Method [facility] Natural mother Lupus [facility] mother Stroke [facility] sister [facility] Natural son [facility] Social History Social Habit Start Date Stop Date Quantity Comments Source Sexual orientation 2021-02-17 Heterosexual Meth odist 19:14:15 (finding) [facility] Gender identity [facility] Alcohol intake 2023-02-27 2023-02-27 Current drinker of Me thodist 00:00:00 00:00:00 alcohol (finding) Hospita l History of Social 2023-02-27 2023-02-[address] function 00:00:00 00:00:00 Hospital Tobacco use and 2020-07-21 2020-07-21 Smokeless tobacco Me [facility]ist exposure 00:00:00 00:00:00 non-user Hospital Alcohol Comment 2019-01-08 2019-01-08 occassionally Method ist 00:00:00 00:00:00 Hospital Sex Assigned At [birth year] [facility] 00:[facility] Smoking Status Start Date Stop Date Source Never smoked tobacco [facility]ital Medications Ordered Filled Start Stop Current Ordering Indication Dosage Frequency Signature Comments Components Source Medication Medication Date Date Medication? Clinician (SIG) Name Name methylPREDN 2021-11 Yes [id number] 40mg [facility] ISolone [id number] acetate 20:15: Hospita (DEPO-MEDRO 00 l L) injection 40 mg methylPREDN Yes [id number] 40mg [facility] ISolone 03-[address] acetate 20:15: Hospita (DEPO-MEDRO 00 l L) injection 40 mg meloxicam 2022- 15mg QD Take 1 Metho di (Mobic) 15 03-21 05-03 tablet (15 st mg tablet 00:00: 04:59 mg total) Ho spita 00 :00 by mouth l daily. zolpidem 10 zolpidem 10 No zolpidem [place] mg tablet mg tablet 8-03 10 mg Comm uni TAKE ONE TAKE ONE 00:00: tablet ty (1) (1) 00 TAKE ONE Hospita TABLET(S) TABLET(S) (1) l BY MOUTH BY MOUTH TABLET(S) Cl inics ONCE A DAY. ONCE A DAY. BY MOUTH ONCE A DAY. zolpidem 10 zolpidem 10 No zolpidem [place] mg tablet mg tablet 8-03 10 mg Comm uni TAKE ONE TAKE ONE 00:00: tablet ty (1) (1) 00 TAKE ONE Hospita TABLET(S) TABLET(S) (1) l BY MOUTH BY MOUTH TABLET(S) Cl inics ONCE A DAY. ONCE A DAY. BY MOUTH ONCE A DAY. zolpidem 10 zolpidem 10 No zolpidem [place] mg tablet mg tablet 8-03 10 mg Comm uni TAKE ONE TAKE ONE 00:00: tablet ty (1) (1) 00 TAKE ONE Hospita TABLET(S) TABLET(S) (1) l BY MOUTH BY MOUTH TABLET(S) Cl inics ONCE A DAY. ONCE A DAY. BY MOUTH ONCE A DAY. methylPREDN Yes [id number] 40mg [facility] ISolone 02-[id number] acetate 16:15: Hospita (DEPO-MEDRO 00 l L) injection 40 mg levothyroxi Yes 112ug QD Take 112 M ethodi ne 3-[address] (SYNTHROID, 13:39: mouth Hospi ta LEVOXYL) 50 every l 112 mcg morning. tablet pantoprazol Yes 40mg QD Take 40 mg Methodi e 3- by mouth st (PROTONIX) 13:39: daily. Hospi ta 40 MG EC 50 l tablet PARoxetine Yes 20mg QD Take 20 mg M ethodi (PAXIL) [address] MG tablet 13:39: every Hospita 50 morning. l aspirin Yes 81mg QD Take 81 mg Meth thony (ECOTRIN) 01-[address] 81 MG 13:39: daily. Hospita enteric 50 l coated tablet zolpidem Yes zolpidem Metho di (AMBIEN) 10 01-[address] mg tablet 13:39: tablet Hospit a 50 l fluticasone Yes 2{spray QD 2 sprays [facility] (FLONASE) 3 } by Each st 50 13:39: Nare route Hospita mcg/actuati 50 daily. l on nasal spray promethazin Yes 25mg Q6H Take 25 mg Methodi e 3-[address] (PHENERGAN) 13:39: every 6 Hos hannah 25 MG 50 (six) l tablet hours as needed for nausea or vomiting (to start after surgery as per md order). gentamicin Yes QD Apply 1 Meth thony (GARAMYCIN) 3- applicatio st 0.1 % 13:39: n Hospita ointment 50 topically l daily. cyanocobala Yes 1{tbl} QD Take 1 Me thodi min, 3- tablet by st vitamin 13:39: mouth Hospita B-12, 50 daily. l (VITAMIN B-12 ORAL) BIOTIN ORAL 2020- Yes 1{tbl} QD Take 1 Me thodi 3-[address] 13:39: mouth Hospita 50 daily. l ascorbic Yes 1000mg QD Take 1,000 M ethodi acid, 3-[address] vitamin C, 13:39: mouth Hospit a (vitamin C) 50 daily. l 1000 MG tablet calcium Yes 1{tbl} QD Take 1 Method i carbonate 3- tablet by st (CALCIUM 13:39: mouth Hospita 500 ORAL) 50 daily. l vitamin E Yes 400U QD Take 400 Meth thony 400 UNIT 3-[address] capsule 13:39: mouth Hospita 50 daily. l cholecalcif Yes 2000U QD Take 2,000 Methodi junie, 3-[address] vitamin D3, 13:39: mouth Hospi ta (VITAMIN 50 daily. l D3) 2,000 unit capsule capsule magnesium Yes 400mg QD Take 400 Met hodi oxide 3-[address] (MAG-OX) 13:39: mouth Hospita 400 mg 50 daily. l (241.3 mg magnesium) tablet potassium Yes 1{tbl} QD Take 1 Meth thony 99 mg 3-[address] tablet 13:39: mouth Hospita 50 daily. l fenoprofen Yes TAKE ONE Met hodi (NALFON) 8-[address] 600 mg 00:00: MOUTH Hospita tablet 00 THREE (3) l TIMES DAILY oxybutynin 2018-0 Yes 5mg Q.5D Take 5 mg Me thodi (DITROPAN) 2-[address] 5 mg/5 mL 14:13: (two) Hospita syrup 17 times a l day. omega-3/dha Yes 1{tbl} QD Take 1 Me thodi /epa/fish 2-[address] oil (FISH 14:13: mouth Hospita OIL HIGH 17 daily. l POTENCY ORAL) cyclobenzap Yes 10mg Take 10 mg Methodi rine 2-[address] (FLEXERIL) 00:00: as needed. H ospita 10 mg 00 l tablet ciclopirox Yes QD Apply 1 Meth thony (LOPROX) -[address] 0.77 % 00:00: n Hospita suspension 00 topically l daily. meloxicam 2017-11 Yes 15mg QD Take 1 Method i (MOBIC) 15 -06 tablet (15 st mg tablet 00:00: mg total) Hos hannah 00 by mouth l daily. B12 B12 No B12 [place] Communi ty Hospita l Clinics biotin biotin No 1capsul Q1D biotin [place] 10,000 mcg 10,000 mcg e(s) 10,000 mcg Communi capsule capsule capsule ty Take 1 Take 1 Take 1 Hospita capsule capsule capsule l every day every day every day Clinics by oral by oral by oral route. route. route. Ditropan XL Ditropan XL No 1 Q1D Ditropan [place] 5 mg 5 mg XL 5 mg Communi tablet,exte tablet,exte tablet,ext ty nded nded ended Hospita release release release l Take 1 Take 1 Take 1 Clinics tablet tablet tablet every day every day every day by oral by oral by oral route for route for route for 90 days. 90 days. 90 days. EpiPen EpiPen No EpiPen [place] 2-Thang 0.3 2-Thang 0.3 2-Thang 0.3 Communi mg/0.3 mL mg/0.3 mL mg/0.3 mL ty injection, injection, injection, Hospita auto-inject auto-inject auto-injec l or or tor Clinics Glucos Glucos No Glucos [place] Chond Cplx Chond Cplx Chond Cplx Communi Advanced 2 Advanced 2 Advanced 2 ty tablets tablets tablets Hospit a daily daily daily l Clinics levothyroxi levothyroxi No levothyrox [place] ne 112 mcg ne 112 mcg ine 112 Communi tablet TAKE tablet TAKE mcg tablet ty ONE (1) ONE (1) TAKE ONE Hospi ta TABLET(S) TABLET(S) (1) l BY MOUTH BY MOUTH TABLET(S) Cl inics ONCE A DAY. ONCE A DAY. BY MOUTH ONCE A DAY. meloxicam meloxicam No meloxicam [place] 15 mg 15 mg 15 mg Communi tablet TAKE tablet TAKE tablet ty ONE (1) ONE (1) TAKE ONE Hospi ta TABLET(S) TABLET(S) (1) l BY MOUTH BY MOUTH TABLET(S) Cl inics ONCE A DAY. ONCE A DAY. BY MOUTH ONCE A DAY. pantoprazol pantoprazol No pantoprazo [place] e 40 mg e 40 mg le 40 mg Commu ni tablet,francisca tablet,francisca tablet,del ty yed release yed release ayed H ospita TAKE ONE TAKE ONE release l (1) (1) TAKE ONE Clinics TABLET(S) TABLET(S) (1) BY MOUTH BY MOUTH TABLET(S) ONCE A DAY. ONCE A DAY. BY MOUTH ONCE A DAY. paroxetine paroxetine No paroxetine [place] 40 mg 40 mg 40 mg Communi tablet TAKE tablet TAKE tablet ty ONE (1) ONE (1) TAKE ONE Hospi ta TABLET(S) TABLET(S) (1) l BY MOUTH BY MOUTH TABLET(S) Cl inics ONCE A DAY. ONCE A DAY. BY MOUTH ONCE A DAY. Vitamin D3 Vitamin D3 No Vitamin D3 [place] 5000 iu 5000 iu 5000 iu Commun i daily daily daily [facility] B12 B12 No B12 [place] [facility]i [facility] biotin biotin No 1capsul Q1D biotin [place] 10,000 mcg 10,000 mcg e(s) 10,000 mcg Communi capsule capsule capsule ty Take 1 Take 1 Take 1 Hospita capsule capsule capsule l every day every day every day Clinics by oral by oral by oral route. route. route. buspirone buspirone No 1 BID buspirone [place] 15 mg 15 mg 15 mg Communi tablet Take tablet Take tablet ty 1 tablet 1 tablet Take 1 Hospi ta twice a day twice a day tablet l by oral by oral twice a Clinic s route. route. day by oral route. EpiPen EpiPen No EpiPen [place] 2-Thang 0.3 2-Thang 0.3 2-Thang 0.3 Communi mg/0.3 mL mg/0.3 mL mg/0.3 mL ty injection, injection, injection, Hospita auto-inject auto-inject auto-injec l or or tor Clinics Glucos Glucos No Glucos [place] Chond Cplx Chond Cplx Chond Cplx Communi Advanced 2 Advanced 2 Advanced 2 ty tablets tablets tablets Hospit a daily daily daily l Clinics ibuprofen ibuprofen No ibuprofen [place] 800 mg 800 mg 800 mg Communi tablet TAKE tablet TAKE tablet ty 1 TABLET BY 1 TABLET BY TAKE 1 Hospita MOUTH EVERY MOUTH EVERY TABLET BY l EIGHT HOURS EIGHT HOURS MOUTH Clinics NEEDED NEEDED EVERY FOR PAIN FOR PAIN EIGHT HOURS NEEDED FOR PAIN levothyroxi levothyroxi No levothyrox [place] ne 112 mcg ne 112 mcg ine 112 Communi tablet TAKE tablet TAKE mcg tablet ty ONE (1) ONE (1) TAKE ONE Hospi ta TABLET(S) TABLET(S) (1) l BY MOUTH BY MOUTH TABLET(S) Cl inics ONCE A DAY. ONCE A DAY. BY MOUTH ONCE A DAY. pantoprazol pantoprazol No pantoprazo [place] e 40 mg e 40 mg le 40 mg Commu ni tablet,francisca tablet,francisca tablet,del ty yed release yed release ayed H ospita TAKE ONE TAKE ONE release l (1) (1) TAKE ONE Clinics TABLET(S) TABLET(S) (1) BY MOUTH BY MOUTH TABLET(S) ONCE A DAY. ONCE A DAY. BY MOUTH ONCE A DAY. paroxetine paroxetine No paroxetine [place] 40 mg 40 mg 40 mg Communi tablet TAKE tablet TAKE tablet ty ONE (1) ONE (1) TAKE ONE Hospi ta TABLET(S) TABLET(S) (1) l BY MOUTH BY MOUTH TABLET(S) Cl inics ONCE A DAY. ONCE A DAY. BY MOUTH ONCE A DAY. Vitamin D3 Vitamin D3 No Vitamin D3 [place] 5000 iu 5000 iu 5000 iu Commun i daily daily daily ty [facility] B12 B12 No B12 [place] Communi ty [facility] biotin biotin No 1capsul Q1D biotin [place] 10,000 mcg 10,000 mcg e(s) 10,000 mcg Communi capsule capsule capsule ty Take 1 Take 1 Take 1 Hospita capsule capsule capsule l every day every day every day Clinics by oral by oral by oral route. route. route. buspirone buspirone No buspirone [place] 15 mg 15 mg 15 mg Communi tablet TAKE tablet TAKE tablet ty ONE (1) ONE (1) TAKE ONE Hospi ta TABLET(S) TABLET(S) (1) l BY MOUTH BY MOUTH TABLET(S) Cl inics TWICE A TWICE A BY MOUTH DAY. DAY. TWICE A DAY. EpiPen EpiPen No EpiPen [place] 2-Thang 0.3 2-Thang 0.3 2-Thang 0.3 Communi mg/0.3 mL mg/0.3 mL mg/0.3 mL ty injection, injection, injection, Hospita auto-inject auto-inject auto-injec l or or [facility] Glucos Glucos No Glucos [place] Chond Cplx Chond Cplx Chond Cplx Communi Advanced 2 Advanced 2 Advanced 2 ty tablets tablets tablets Hospit a daily daily daily [facility] levothyroxi levothyroxi No levothyrox [place] ne 112 mcg ne 112 mcg ine 112 Communi tablet TAKE tablet TAKE mcg tablet ty ONE (1) ONE (1) TAKE ONE Hospi ta TABLET(S) TABLET(S) (1) l BY MOUTH BY MOUTH TABLET(S) Cl inics ONCE A DAY. ONCE A DAY. BY MOUTH ONCE A DAY. meloxicam meloxicam No 1 Q1D meloxicam [place] 15 mg 15 mg 15 mg Communi tablet Take tablet Take tablet ty 1 tablet 1 tablet Take 1 Hospi ta every day every day tablet l by oral by oral every day Clin ics route. route. by oral route. pantoprazol pantoprazol No pantoprazo [place] e 40 mg e 40 mg le 40 mg Commu ni tablet,francisca tablet,francisca tablet,del ty yed release yed release ayed H ospita TAKE ONE TAKE ONE release l (1) (1) TAKE ONE Clinics TABLET(S) TABLET(S) (1) BY MOUTH BY MOUTH TABLET(S) ONCE A DAY. ONCE A DAY. BY MOUTH ONCE A DAY. paroxetine paroxetine No paroxetine [place] 40 mg 40 mg 40 mg Communi tablet TAKE tablet TAKE tablet ty ONE (1) ONE (1) TAKE ONE Hospi ta TABLET(S) TABLET(S) (1) l BY MOUTH BY MOUTH TABLET(S) Cl inics ONCE A DAY. ONCE A DAY. BY MOUTH ONCE A DAY. Vitamin D3 Vitamin D3 No Vitamin D3 [place] 5000 iu 5000 iu 5000 iu Commun i [facility] Immunizations Ordered Immunization Filled Immunization Date Status Commen ts Source Name Name influenza, influenza, 2019-09-10 Completed [place] Communi ty injectable, injectable, 00:00:00 Hospital Cli nics quadrivalent quadrivalent influenza, influenza, 2019-09-10 Completed [place] Communi ty injectable, injectable, 00:00:00 Hospital Cli nics quadrivalent quadrivalent influenza, influenza, 2019-09-10 Completed [place] Communi ty injectable, injectable, 00:00:00 Hospital Cli nics quadrivalent quadrivalent Pneumococcal, 2018-09-18 [facility]pleted [facility] Influenza, 2018-08-29 [facility]pleted [facility] 00:[facility]00 Hospital influenza, influenza, 2018-08-13 Completed [place] Communi ty unspecified unspecified 00:00:00 Hospital Cli nics formulation formulation influenza, influenza, 2018-08-13 Completed [place] Communi ty unspecified unspecified 00:00:00 Hospital Cli nics formulation formulation influenza, influenza, 2018-08-13 Completed [place] Communi ty unspecified unspecified 00:00:00 Hospital Cli nics formulation formulation Tdap 2017-08-24 Completed [facility] 00:[facility] Vital Signs Vital Name Observation Time Observation Value Comments Source BP Diastolic 2022-08-01 00:00:00 70 mm[Hg] [facility] BP Systolic 2022-08-01 00:00:00 120 mm[Hg] [facility] Body Weight 2022-08-01 00:00:00 2518.4 [oz_av] [facility] BP Diastolic 2021-09-22 00:00:00 68 mm[Hg] [facility] BP Systolic 2021-09-22 00:00:00 124 mm[Hg] [facility] Body Weight 2021-09-22 00:00:00 2572.8 [oz_av] [facility] BP Diastolic 2021-06-22 00:00:00 70 mm[Hg] [facility] BP Systolic 2021-06-22 00:00:00 130 mm[Hg] [facility] Body Weight 2021-06-22 00:00:00 2515.2 [oz_av] [facility] Height 2020-04-20 11:05:00 167.64 CM Weight 2020-04-20 11:05:00 7.25 KG Body height 2023-02-27 18:49:00 167.6 cm [facility] Body weight 2023-02-27 18:49:00 68.04 kg [facility] BMI 2023-02-27 18:49:00 24.21 kg/m2 [facility] Procedures Procedure Date / Time Performing Clinician Source Performed XR KNEE 4+ VW RIGHT 2023-02-27 18:51:47 [facility] [place] ARTHROCENTESIS 2023-02-27 18:30:[address] [facility] ASPIR&/INJ MAJOR JT/BURSA Lyn W/O US [place] ARTHROCENTESIS 2022-08-22 19:20:00 Chad [facility] ASPIR&/INJ MAJOR JT/BURSA W/O US MRI, brain, w/o contrast 2022-08-01 00:00:00 [facility] XR, lumbar spine, 2 view 2022-08-01 00:00:00 [facility] XR, hip, unilateral, 2 or 2022-08-01 00:00:00 [facility] 3 view [facility] XR, hip + pelvis, 2022-08-01 00:00:00 [facility] unilateral, 2 or 3 view [facility] Clinics REPOS RT MT W/IF DEVC 2020-04-23 00:00:00 Abisai Brown OPEN APPROACH Center REPOSITION RT TARSAL IF 2020-04-23 00:00:00 Nona Brown [facility] OPN Center Plan of Care Planned Activity Planned Date Details Comments Source Future Scheduled 2023-04-01 COVID-19 VACCINE (#1) [facility] Test 20:10:44 [code = COVID-19 VACCINE (#1)] Future Scheduled 2023-04-01 Hepatitis C screening [facility] Test 20:10:44 (procedure) [code = [id number]] Future Scheduled 2023-04-01 BREAST CANCER [facility] Test 20:10:44 SCREENING [code = BREAST CANCER SCREENING] Future Scheduled 2023-04-01 COLONOSCOPY SCREENING [facility] Test 20:10:44 [code = COLONOSCOPY SCREENING] Future Scheduled 2023-04-01 SHINGLES VACCINES (1 Met [facility] Test 20:10:44 of 2) [code = SHINGLES VACCINES (1 of 2)] Future Scheduled 2023-04-01 65+ [facility] Test 20:10:44 VACCINE (3 - PPSV23 if available, else PCV20) [code = 65+ PNEUMOCOCCAL VACCINE (3 - PPSV23 if available, else PCV20)] Future Scheduled 2023-04-01 INFLUENZA VACCINE Method [facility] Test 20:10:44 [code = INFLUENZA VACCINE] Diagnostic Test 2022-08-01 CK (creatine kinase), [facility] Community Pending 00:00:00 total, serum [code = [facility] CK (creatine kinase), total, serum] Diagnostic Test 2022-08-01 ESR (erythrocyte [place] C ommunity Pending 00:00:00 sedimentation rate), [facility] blood [code = ESR (erythrocyte sedimentation rate), blood] Diagnostic Test 2022-08-01 C-reactive protein, [facility] Community Pending 00:00:00 quantitative [code = [facility] C-reactive protein, quantitative] Encounters Start End Encounter Admission Attending Care Care Encounter Source Date/Time Date/Time Type Type Clinicians Facility Department ID 2023-02-27 2023-02-27 Office Maffet, 1.2.840.1 [id number] Methodi 13:30:00 14:46:44 Visit Mac WDior [id number] 3.430.2.7 Hospit a .3.609857 l .8 2023-02-27 2023-02-27 Travel 1.2.840.1 [id number] Methodi 00:00:00 00:00:[id number] 3.430.2.7 0.2.7.3.698 Ho spita .3.078240 084.8 l .8 2023-02-27 2023-02-27 Outpatient MAFFET, [facility] [id number] [place] 00:00:00 00:00:00 MAC [address] 2023-02-27 2023-02-27 Outpatient MAFFET, [facility] [id number] [place] 00:00:00 00:00:[address] MAC [address] 2022-09-21 2022-09-21 Outpatient KATT_Lawson [facility] [id number] [place] 00:00:00 00:00:00 509 Commun i ty Hospita l Clinics 2022-08-22 2022-08-22 Office Maffet, 1.2.840.1 [id number] Methodi 14:20:00 14:22:44 Visit Mac Christensen [id number] 3.430.2.7 Hospit a .3.737463 l .8 2022-08-22 2022-08-22 Travel 1.2.840.1 [id number] Methodi 00:00:00 00:00:[address] 3.430.2.7 0.2.7.3.698 Ho spita .3.998042 084.8 l .8 2022-08-22 2022-08-22 Outpatient LIZFET, [facility] [id number] [place] 00:00:00 00:00:00 MAC [address] 2022-08-02 2022-08-02 Outpatient KATT_Lawson [facility] [id number] [place] 00:00:00 00:00:00 [facility] 2022-08-01 2022-08-01 Outpatient KATT_Lawson [facility] [id number] [place] 00:00:00 00:00:00 912 [facility] 2022-08-01 2022-08-01 Outpatient Nohemi Vargas [facility] [id number] 00:00:00 00:00:00 Alla [id number] 2022-08-01 2022-08-01 Nohemi Gold [facility] [place] [facility] [place] 2 [place] 00:00:00 00:00:00 Kyara Vargas MD: [address] [facility] [address], [facility] [address], HOSPITAL Clinic [place], [place], [address] KATT , Ph. 2022-06-13 2022-06-13 Outpatient KEFFER_A [facility] [id number] [place] 02:41:00 02:41:00 725 [facility] 2022-03-21 2022-03-21 Outpatient LIZFET, [facility] [id number] [place] 00:00:00 00:00:00 MAC [address] 2022-03-21 2022-03-21 Outpatient [facility] [id number] [place] 00:00:00 00:00:00 MAC [address] 2022-02-20 2022-02-20 Outpatient KEFFER_A [facility] [id number] [place] 01:19:00 01:19:00 403 [facility] 2022-01-16 2022-01-16 Outpatient KEFFER_A [facility] [id number] [place] 02:13:00 02:13:00 227 [facility] 2021-10-31 2021-10-31 Outpatient KEFFER_A [facility] [id number] [place] 01:04:00 01:04:00 212 [facility] 2021-09-26 2021-09-26 Outpatient KEFFER_A [facility] [id number] [place] 12:37:00 12:37:00 107 [facility] 2021-09-22 2021-09-22 Outpatient KEFFER_A [facility] [id number] [place] 04:06:00 04:06:00 103 [facility] 2021-09-22 2021-09-22 Outpatient Nohemi Vargas [facility] [id number] 00:00:00 00:00:00 Alla [id number] 2021-09-22 2021-09-22 Nohemi Gold [facility] [place] [facility] [place] [id number] [place] 00:00:00 00:00:00 Kyara Vargas MD: [address] [facility] [address], COMM[facility] [address], HOSPITAL [place], [place] CLINIC, [address] KATT , Ph. 2021-08-22 2021-08-22 Outpatient JONYFFER_A [facility] [id number] 0211 [place] 01:03:00 01:03:00 003 [facility] 2021-07-18 2021-07-18 Outpatient KATT_Lawson [facility] [id number] [id number] [place] 12:43:00 12:43:00 829 [facility] 2021-06-22 2021-06-22 Outpatient JONYFFER_Lawson [facility] [id number] 0210 [place] 06:15:00 06:15:00 803 [facility] 2021-06-22 2021-06-22 Outpatient Nohemi Vargas [facility] [id number] 00:00:00 00:00:00 Alla [id number] 2021-06-22 2021-06-22 Nohemi Gold [facility] [place] [facility] [place] [id number] [place] 00:00:00 00:00:00 Kyara Vargas MD: [address] [facility] [address], COMMUNITY [address], [facility], [address] KATT , Ph. 2021-02-18 2021-02-18 Outpatient [facility], [facility] [id number] [place] 00:00:00 00:00:00 MAC [address] 2021-02-06 2021-02-06 Outpatient MAFFET, [facility] [id number] [place] 00:00:00 00:00:00 MAC [address] 2021-01-18 2021-01-18 Outpatient MAFFET, [facility] [id number] [place] 00:00:00 00:00:00 MAC [address] 2021-01-18 2021-01-18 Outpatient MAFFET, [facility] [id number] [place] 00:00:00 00:00:00 MAC [address] 2021-01-13 2021-01-13 Outpatient KEFFER_A [facility] [id number] 0210 [place] 01:11:00 01:11:00 224 [facility] 2021-01-13 2021-01-13 Outpatient KEFFER_A [facility] [id number] 0210 [place] 01:11:00 01:11:00 526 [facility] 2020-10-07 2020-10-07 Outpatient keffer_a [facility] [id number] [place] 02:27:00 02:27:00 [facility] 2020-07-21 2020-07-21 Outpatient MAFFET, [facility] [id number] [place] 00:00:00 00:00:00 MAC [address] 2020-07-21 2020-07-21 Outpatient MAFFET, [facility] [id number] [place] 00:00:00 00:00:00 MAC [address] 2020-04-23 2020-04-23 Outpatient Pan KAHN [facility] [id number] [facility] 07:16:00 13:10:[address] [facility] 2020-04-15 2020-04-15 Outpatient CRISS, [facility] [id number] [place] 00:00:00 00:00:00 JOSÉ [address] 2019-12-04 2019-12-04 Outpatient CRISS [facility] [id number] [place] 00:00:00 00:00:00 JOSÉ [address] 2017-11-07 2017-11-07 Outpatient keffer_a [facility] [id number] [place] 08:58:00 08:58:00 [facility] Results Test Description Test Time Test Comments Results Result Comments Source BASIC METABOLIC PANEL *WW* 2020-04-23 08:15:00 Test Item Value Reference Range Interpretation Comme nts GLUCOSE (test code = 06D) 116 mg/dL 75-100 H SODIUM (test code = 01A) 138 mmol/L 136-145 POTASSIUM (test code = 01B) 3.7 mmol/L 3.6-5.1 CHLORIDE (test code = 04A) 104 mmol/L 98-107 CO2 (test code = 02A) 28 mmol/L 22-32 ANION GAP (test code = ANG) 9.7 mmol/L BUN (test code = 05D) 19 mg/dL 7-18 H CREATININE (test code = 03E) 0.8 mg/dL 0.4-1.1 GFR (test code = GFR) 74 mL/min/1.73m\S\2 >=90 L GFR (test code = 85 mL/min/1.73m\S\2 >=90 L GFRAA) EGFR (test code = EGFR) eGFR BY CKD-EPI CALCULATION IS NOT RECOMMENDED FOR PATIENTS UNDER 18 YEARS OF AGE. BUN/CREA (test code = BCR) 23 12-20 H CALCIUM (test code = 09D) 9.1 mg/dL 8.3-9.5 CBC (INCLUDES AUTOMATED DIFFERENTIAL)*[id number] 08:09:00 Test Item Value Reference Range Interpretation Comments WBC (test code = WBC) 4.5 10\S\3/uL 4.5-11.0 RBC (test code = RBC) 4.75 10\S\6/uL 3.80-5.80 HGB (test code = HBG) 13.9 g/dL 12.0-15.5 HCT (test code = HCT) 41.6 % 35.0-44.0 MCV (test code = MCV) 87.6 fL 81.0-99.0 MCH (test code = MCH) 29.3 pg 27.0-31.0 MCHC (test code = MCHC) 33.4 g/dL 32.0-36.0 RDW (test code = RDW) 12.1 % 11.5-14.5 PLT (test code = PLT) 159 10\S\3/uL 130-400 MPV (test code = MPV) 11.2 fL 9.4-12.4 NEUTROP # (test code = NE#) 2.7 10\S\3/uL 1.6-8.0 LYMPH # (test code = LY#) 1.2 10\S\3/uL 1.1-3.5 MONOCYTE # (test code = MO#) 0.5 10\S\3/uL 0.0-1.1 EOSINOPH # (test code = EO#) 0.1 10\S\3/uL 0.0-0.7 BASOPHIL # (test code = BA#) 0.0 10\S\3/uL 0.0-0.3 IG # (test code = IG#) 0.01 10\S\3/uL 0.00-0.06 NRBC # (test code = NRBC#) 0.00 10\S\3/uL 0.00-0.01 NEUTROPH % (test code = NE%) 59.6 % 35.0-73.0 LYMPH % (test code = LY%) 25.8 % 20.0-55.0 MONO % (test code = MO%) 10.9 % 2.5-10.0 H EOSINOPH % (test code = EO%) 3.1 % 0.0-5.0 BASOPHIL % (test code = BA%) 0.4 % 0.0-2.0 IG % (test code = IG%) 0.2 % 0.0-0.8 NRBC% (test code = NRBC%) 0.0 % 0.0-0.2 MANDIFF (test code = WMDIFF) NO NO RBC MORPH (test code = NORMAL WRBCMOR)
[2023-04-01 20:51] LABS: Magnesium 2.3 mg/dL (1.6-2.4); Potassium 3.7 mEq/L (3.5-5.1)
--- NOTE | 2023-04-01 21:06 | RAD REPORT ---
EXAM DESCRIPTION: US - Extremity Venous Uni Ltd - 04/01/2023 8:59 pm CLINICAL HISTORY: Right calf pain COMPARISON: None. TECHNIQUE: Real-time sonographic evaluation of the right lower extremity deep venous system was perf ormed. FINDINGS: Normal compressibility, flow augmentation, phasic flow and spontaneous flow is identified in the right lower extremity deep venous system. No intraluminal filling defects seen. IMPRESSION: No DVT in the right lower extremity.
--- NOTE | 2023-04-01 21:13 | ER ---
Nurse's Notes [facility] Name: Aaliyah Dennis Age: 72 yrs Sex: Female : 1950 Arrival Date: 04/01/2023 Time: 20:03 Bed 7 Private MD: Diagnosis: Pain in right lower leg Presentation: 04/01 20:22 Chief complaint: EMS states: We were toned out for severe leg pain that started in the vc1 right calf and traveled up to the right thigh. Coronavirus screen: Vaccine status: Patient reports being unvaccinated. Client denies travel out of the [place] in the last 14 days. At this time, the client does not indicate any symptoms associated with coronavirus-19. Ebola Screen: Patient negative for fever greater than or equal to 101.5 degrees Fahrenheit, and additional compatible Ebola Virus Disease symptoms Patient denies exposure to infectious person. Patient denies travel to an Ebola-affected area in the 21 days before illness onset. No symptoms or risks identified at this time. Initial Sepsis Screen: Does the patient meet any 2 criteria? No. Patient's initial sepsis screen is negative. Does the patient have a suspected source of infection? No. Patient's initial sepsis screen is negative. Risk Assessment: Do you want to hurt yourself or someone else? Patient reports no desire to harm self or others. Onset of symptoms was April 01, 2023. 20:22 Method Of Arrival: EMS: [facility] vc1 20:22 Acuity: PAUL 4 vc1 20:29 Care prior to arrival: IV initiated. 20 GA, in the right antecubital area. vc1 Triage Assessment: 20:26 General: Appears in no apparent distress. comfortable, Behavior is calm, cooperative, vc1 appropriate for age. Pain:. Pain: Complains of pain in right calf Pain radiates to right gluteal fold, right hamstring and posterior aspect of right knee Pain currently is 0 out of 10 on a pain scale. at worst was 10 out of 10 on a pain scale. Quality of pain is described as burning. EENT: No deficits noted. No signs and/or symptoms were reported regarding the EENT system. Neuro: Level of Consciousness is awake, alert, obeys commands, Oriented to person, place, time, situation, Appropriate for age. Cardiovascular: No deficits noted. Respiratory: Airway is patent Respiratory effort is even, unlabored, Respiratory pattern is regular, symmetrical. GI: No deficits noted. No signs and/or symptoms were reported involving the gastrointestinal system. : No deficits noted. No signs and/or symptoms were reported regarding the genitourinary system. Derm: No deficits noted. No signs and/or symptoms reported regarding the dermatologic system. Musculoskeletal: No deficits noted. Circulation, motion, and sensation intact. Range of motion: intact in all extremities, Swelling present in right knee. Historical: - Allergies: 20:25 Morphine; vc1 20:25 STINGS - must carry EPI pen; vc1 20:25 Sulfa (Sulfonamide Antibiotics); vc1 - Home Meds: 20:25 paroxetine HCl 40 mg Oral tab 1 tab once daily [Active]; levothyroxine 112 mcg tab 1 vc1 tab once daily for Hypothyroidism [Active]; oxybutynin chloride 10 mg Oral tr24 1 tab once daily [Active]; pantoprazole oral 1 tab daily [Active]; - PMHx: 20:25 Anxiety; Gastric Reflux; Hypothyroidism; vc1 - PSHx: 20:25 None; vc1 - Immunization history:: Client reports having NOT received the Covid vaccine. - Social history:: Smoking status: Patient denies any tobacco usage or history of. Screenin:[facility] Fall Risk Assessment (Adult) History of falling in the last 3 months, vc1 including since admission Yes- single mechanical fall (1 pt) Confusion or Disorientation No (0 pts) Intoxicated or Sedated No (0 pts) Impaired Gait No (0 pts) Mobility Assist Device Used No (0 pt) Altered Elimination No (0 pt) Score/Fall Risk Level 0 - 2 = Low Risk Oriented to surroundings, Maintained a safe environment, Educated pt \T\ family on fall prevention, incl call for assistance when getting out of bed. Abuse screen: Denies threats or abuse. Nutritional screening: No deficits noted. Tuberculosis screening: No symptoms or risk factors identified. Assessment: 21:24 Reassessment: Patient appears in no apparent distress at this time. No changes from pf1 previously documented assessment. Patient and/or family updated on plan of care and expected duration. Pain level reassessed. Patient denies pain at this time. Patient states feeling better. Patient states symptoms have improved. Vital Signs: 20:22 BP 144 / 70; Pulse 62; Resp 16; Temp 98.7; Pulse Ox 98% ; Weight 72.57 kg; Height 5 ft. vc1 7 in. ; Pain 0/10; 21:23 BP 137 / 72; Pulse 56; Resp 16; Temp 98.2; Pulse Ox 98% on R/A; Pain 0/10; pf1 20:22 Body Mass Index 25.06 (72.57 kg, 170.18 cm) vc1 20:22 Pain Scale: Adult vc1 21:23 Pain Scale: Adult pf1 ED Course: 20:06 Patient arrived in ED. kb 20:06 Rebecca Parks [facility]-C [facility]. kb 20:06 Leena España MD is Attending Physician. kb 20:22 Ara James, RN is Primary Nurse. vc1 20:24 Triage completed. vc1 20:26 Arm band placed on right wrist. vc1 20:28 Patient has correct armband on for positive identification. Bed in low position. Call vc1 light in reach. Pulse ox on. NIBP on. 20:34 Magnesium Sent. vc1 20:34 Basic Metabolic Panel Sent. vc1 21:01 US Extremity Venous Unilateral Ltd In Process Unspecified. EDMS 21:23 No provider procedures requiring assistance completed. IV discontinued, intact, pf1 bleeding controlled, No redness/swelling at site. Pressure dressing applied. Administered Medications: No medications were administered Medication: 20:29 VIS not applicable for this client. vc1 Outcome: 21:12 Discharge ordered by . kb 21:24 Discharged to home ambulatory, with family. pf1 21:24 Condition: improved 21:24 Discharge instructions given to patient, Instructed on discharge instructions, follow up and referral plans. Demonstrated understanding of instructions, follow-up care. 21:27 Patient left the ED. vc1 Signatures: Dispatcher [employer] EDMS Rebecca Parks FNP-C FNP-Ckb Calcote, Vanessa RN RN vc1 Luanne elias RN RN pf1
--- NOTE | 2023-04-01 21:13 | EDPHYS ---
Physician Documentation [facility] Name: Aaliyah Dennis Age: 72 yrs Sex: Female : 1950 Arrival Date: 04/01/2023 Time: 20:03 Bed 7 Private MD: ED Physician Leena España HPI: 04/01 21:11 This 72 yrs old Female presents to ER via EMS with complaints of leg pain. kb 21:11 The patient presents with pain. The complaints affect the right calf. Context: The kb problem was sustained at home, resulted from an unknown cause, the patient can fully bear weight, the patient is able to ambulate. Onset: The symptoms/episode began/occurred just prior to arrival. Modifying factors: The symptoms are alleviated by nothing. the symptoms are aggravated by nothing. Associated signs and symptoms: The patient has no apparent associated signs or symptoms. Treatment prior to arrival includes: no previous treatment. Severity of symptoms: At their worst the symptoms were moderate, in the emergency department the symptoms have resolved. The patient has not experienced similar symptoms in the past. The patient has not recently seen a physician. 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 States she has had muscle cramps recently as well. Historical: - Allergies: 20:25 Morphine; vc1 20:25 STINGS - must carry EPI pen; vc1 20:25 Sulfa (Sulfonamide Antibiotics); vc1 - Home Meds: 20:25 paroxetine HCl 40 mg Oral tab 1 tab once daily [Active]; levothyroxine 112 mcg tab 1 vc1 tab once daily for Hypothyroidism [Active]; oxybutynin chloride 10 mg Oral tr24 1 tab once daily [Active]; pantoprazole oral 1 tab daily [Active]; - PMHx: 20:25 Anxiety; Gastric Reflux; Hypothyroidism; vc1 - PSHx: 20:25 None; vc1 - Immunization history:: Client reports having NOT received the Covid vaccine. - Social history:: Smoking status: Patient denies any tobacco usage or history of. ROS: 21:10 Constitutional: Negative for fever, chills, and weight loss. kb 21:10 MS/extremity: Positive for pain, of the right calf. 21:10 All other systems are negative. Exam: 21:10 Constitutional: This is a well developed, well nourished patient who is awake, alert, kb and in no acute distress. Head/Face: Normocephalic, atraumatic. ENT: Moist Mucous membranes Cardiovascular: Regular rate and rhythm with a normal S1 and S2. No gallops, murmurs, or rubs. No pulse deficits. Respiratory: Respirations even and unlabored. No increased work of breathing. Talking in full sentences Abdomen/GI: Soft, non-tender. No distention Skin: Warm, dry with normal turgor. Normal color. MS/ Extremity: Pulses equal, no cyanosis. Neurovascular intact. Full, normal range of motion. Neuro: Awake and alert, GCS 15, oriented to person, place, time, and situation. Moves all extremities. Normal gait. Vital Signs: 20:22 BP 144 / 70; Pulse 62; Resp 16; Temp 98.7; Pulse Ox 98% ; Weight 72.57 kg; Height 5 ft. vc1 7 in. ; Pain 0/10; 21:23 BP 137 / 72; Pulse 56; Resp 16; Temp 98.2; Pulse Ox 98% on R/A; Pain 0/10; pf1 20:22 Body Mass Index 25.06 (72.57 kg, 170.18 cm) vc1 20:22 Pain Scale: Adult vc1 21:23 Pain Scale: Adult pf1 MDM: 20:06 Patient medically screened. kb 21:10 Differential diagnosis: DVT, muscle strain, muscle spasm, electrolyte abnormality. Data kb reviewed: vital signs, nurses notes. Historians other than the Patient: EMS: [facility]. Counseling: I had a detailed discussion with the patient and/or guardian regarding: the historical points, exam findings, and any diagnostic results supporting the discharge/admit diagnosis, lab results, radiology results, the need for outpatient follow up, a family practitioner, to return to the emergency department if symptoms worsen or persist or if there are any questions or concerns that arise at home. 04/01 20:06 Order name: Basic Metabolic Panel; Complete Time: 20:54 kb 04/01 20:06 Order name: Magnesium; Complete Time: 20:54 kb 04/01 20:06 Order name: US Extremity Venous Unilateral Ltd; Complete Time: 21:07 kb Administered Medications: No medications were administered Disposition: 04/02 07:03 STAFF ATTESTATION STATEMENT: I was immediately available onsite in the emergency sd2 department for consultation in the care of this patient. I did not see or examine this patient. Leena España MD. Disposition Summary: 04/01/23 21:12 Discharge Ordered Location: Home kb Condition: Stable kb Diagnosis - Pain in right lower leg kb Followup: kb - With: Emergency Department - When: As needed - Reason: Worsening of condition Followup: kb - With: Private Physician - When: 2 - 3 days - Reason: Recheck today's complaints, Continuance of care, Re-evaluation by your physician Discharge Instructions: - Discharge Summary Sheet kb - Musculoskeletal Pain kb Forms: - Medication Reconciliation Form kb - Thank You Letter kb - Antibiotic Education kb - Prescription Opioid Use kb Signatures: Dispatcher [employer] EDMS Rebecca Parks FNP-C FNP-Ara [place], RN RN vc1 Leena España MD MD sd2
[2023-04-01 21:33] VITALS: O2SAT 98
[2023-04-01 21:34] VITALS: BP 137/72; TEMP 98.2
== END 2023-04-01 21:27 | disposition home or self-care (01) ==
LOC: ER 20:03
DX: M79.661 Pain in right lower leg (principal); E03.9 Hypothyroidism, unspecified; F41.9 Anxiety disorder, unspecified; Z88.2 Allergy status to sulfonamides; Z88.5 Allergy status to narcotic agent; Z91.038 Other insect allergy status
CPT/HCPCS: 36415; 80048; 83735; 93971; 99284

== ENCOUNTER 2024-06-25 17:39 | Emergency (ER) | payer OTHER ==
[2024-06-25] MEDS ORDERED: NA CHLORIDE 0.9% 1,000 ML ONE (18:41)
[2024-06-25] MEDS ORDERED: TDAP (DIPHTH,PERTUSS(ACELL),TET VAC) 0.5 ML VIAL IMVAC ONE (18:51)
[2024-06-25] MEDS ORDERED: LIDOCAINE 1% 20 ML MDV ONE (18:51)
--- NOTE | 2024-06-25 19:19 | RAD REPORT ---
EXAM DESCRIPTION: RAD - Femur Right - 06/25/2024 6:58 pm CLINICAL HISTORY: PAIN COMPARISON: <Comparisons> FINDINGS/IMPRESSION: No acute fracture. No malalignment. No significant focal degenerative changes. Right knee arthroplasty.
--- NOTE | 2024-06-25 19:20 | RAD REPORT ---
EXAM DESCRIPTION: RAD - Hip Right 2 View - 06/25/2024 6:58 pm CLINICAL HISTORY: PAIN COMPARISON: Chest Pa And Lat (2 Views) dated 06/18/2024; Chest Single View dated 11/13/2022; Chest Pa And Lat (2 Views) dated 11/11/2022; Chest Single View dated 03/12/2020No comparisons FINDINGS: No acute fracture. No malalignment. No significant focal degenerative changes. IMPRESSION: No acute osseous abnormality involving the right hip.
--- NOTE | 2024-06-25 19:21 | RAD REPORT ---
EXAM DESCRIPTION: RAD - Pelvis - 06/25/2024 6:58 pm CLINICAL HISTORY: PAIN COMPARISON: No comparisons FINDINGS/IMPRESSION: No acute fracture. No malalignment. Bilateral degenerative changes in the hips.
[2024-06-25 19:22] LABS: Absolute Eosinophils 0.1 K/uL (0-0.5); Absolute Lymphocytes (CBC) 0.9 K/uL (0.7-4.9); Absolute Monocytes 0.5 K/uL (0.1-1.3); Absolute Neutrophil 4.3 K/uL (1.8-8.0); Basophils % 0.3 % (0-1.3); Eosinophils % 1.3 % (0-4.4); Hematocrit 35.6 % (36.0-45.0); Hemoglobin 11.5 g/dL (12.0-15.0); Lymphocytes % 16.3 % (15.3-44.8); MCH 27.2 pg (27.0-35.0); MCHC 32.2 g/dL (32.0-36.0); MCV 84.3 fL (80-100); MPV 9.7 fL (7.6-11.3); Monocytes % 8.2 % (3.3-12.3); Neutrophils % 73.9 % (41.7-73.7); Platelets 147 thou/uL (152-406); RBC Red Blood Cell Count 4.22 M/uL (3.86-4.86); Red Cell Distribution Width 14.4 % (12.1-15.2)
[2024-06-25 19:33] LABS: Anion Gap 9.4 mEq/L (5.0-15.0); Potassium 3.4 mEq/L (3.5-5.1)
--- NOTE | 2024-06-25 20:07 | RAD REPORT ---
EXAM DESCRIPTION: CT - Head C Spine Cap Radha Castañeda - 06/25/2024 7:44 pm CLINICAL HISTORY: Trauma, head and neck injury. Chest, abdomen and pelvis pain. Dizziness;Pain COMPARISON: Hip Right 2 View dated 06/25/2024; Femur Right dated 06/25/2024 TECHNIQUE: CT head without contrast. CT cervical spine without contrast with coronal and sagittal reformatted images. CT chest, abdomen and pelvis with coronal and sagittal reformatted images of the spine. All CT scans are performed using dose optimization technique as appropriate and may include automated exposure control or mA/KV adjustment according to patient size. FINDINGS: CT HEAD WITHOUT CONTRAST: No intracranial hemorrhage, hydrocephalus or extra-axial fluid collection. No acute large vascular te rritory infarct. Right forehead laceration and small hematoma. The paranasal sinuses and mastoids are clear. The calvarium is intact. CT CERVICAL SPINE WITHOUT CONTRAST: No fracture or subluxation. Approximately 3 millimeters anterolisthesis of C3 on C4. Multilevel degen erative changes are present in the spine. Varying degrees of neural foraminal narrowing noted. The prevertebral soft tissues are normal in thickness. CT CHEST, ABDOMEN, PELVIS: Thorax: Chest Wall: No abnormal mass Lungs: No acute abnormality. Pleura: No effusions or pneumothorax. Vivi/Mediastinum: No lymphadenopathy. Small hiatal hernia with circumferentially thickened distal eso phagus that may reflect mild esophagitis. Aorta/Pulmonary Arteries: Unremarkable Heart: Normal size. Abdomen/Pelvis: Liver: Low-density lesions along skin segment 4 of the liver with coarse adjacent calcifications is a lmost certainly benign. Biliary: No biliary ductal dilatation. Stomach: No significant focal abnormality. Duodenum: No significant focal abnormality. Pancreas: No significant abnormality. Spleen: No significant abnormality. Adrenal: No suspicious lesions. Kidney/ureter: No hydronephrosis. No renal calculi. Retroperitoneum: No retroperitoneal adenopathy. Vascular: No aneurysm. Bowel: No significant focal abnormality. Peritoneum: No ascites or free air. Bladder: Grossly unremarkable. Reproductive: No adnexal masses. Bones: No acute fracture. Probable bone graft harvest site at the right anterior iliac spine. Multile rosa degenerative changes are present in the spine. Other: n/a IMPRESSION: Negative for acute traumatic findings.
[2024-06-25] MEDS ORDERED: POTASSIUM 25 MEQ EFFERV TAB ONE (20:20)
[2024-06-25] MEDS ORDERED: CEPHALEXIN 250 MG CAP ONE (20:20)
[2024-06-25] MEDS ORDERED: CEFAZOLIN SODIUM 1 GM/VIAL ONE (20:20)
[2024-06-25] MEDS ORDERED: NA CHLORIDE 0.9% 50 ML ONE (20:21)
--- NOTE | 2024-06-25 20:49 | ER ---
Nurse's Notes [facility] Name: Aaliyah Dennis Age: 73 yrs Sex: Female : 1950 Arrival Date: 06/25/2024 Time: 17:39 Bed 20 Private MD: Diagnosis: Fall on same level, unspecified;Pain in right hip;Pain in right leg;Laceration without foreign body of other part of head-forehead;Fracture of nasal bones Presentation: 06/25 18:02 Chief complaint: EMS states: patient fell in front yard, did not lose LOC, 1 inch kj2 laceration on right eyebrow, right hip is sore and abraision on bridge of nose. Care prior to arrival: bandage/kerlix wrapped around fore head. Mechanism of Injury: Fall fell while running. Trauma event details: Injury occurred: at home. Injury occurred: June 25, 2024 Injury occurred at: 17:00. 18:02 Acuity: PAUL 3 kj2 18:02 Method Of Arrival: EMS: [facility] kj 18:13 Coronavirus screen: At this time, the client does not indicate any symptoms associated kj2 with coronavirus-19. Ebola Screen: No symptoms or risks identified at this time. Initial Sepsis Screen: Does the patient meet any 2 criteria? No. Patient's initial sepsis screen is negative. Risk Assessment: Do you want to hurt yourself or someone else? Patient reports no desire to harm self or others. Onset of symptoms was June 25, 2024. 18:13 Initial Sepsis Screen: Does the patient have a suspected source of infection? No. kj2 Patient's initial sepsis screen is negative. Triage Assessment: 18:06 General: Appears in no apparent distress. Behavior is calm, cooperative. Pain: kj2 Complains of pain in right hip Pain currently is 5 out of 10 on a pain scale. Neuro: Level of Consciousness is awake, alert, obeys commands, Oriented to person, place, time. Cardiovascular: Patient's skin is warm and dry. Respiratory: Airway is patent Respiratory effort is even, unlabored. GI: No deficits noted. : No deficits noted. Injury Description: Abrasion sustained to nose Laceration sustained to outer aspect of right eyebrow a small amount of bleeding noted at this time. Historical: - Allergies: 18:14 Morphine; kj2 18:14 STINGS - must carry EPI pen; kj2 18:14 Sulfa (Sulfonamide Antibiotics); kj2 - Home Meds: 18:14 aspirin 81 mg Oral chew 1 tab once daily [Active]; ciclopirox 0.77 % Topical crea daily kj2 [Active]; cyclobenzaprine 10 mg Oral tab daily [Active]; fenoprofen 600 mg Oral tab 1 tab 3 times per day [Active]; levothyroxine 112 mcg tab 1 tab once daily for Hypothyroidism [Active]; meloxicam 15 mg Oral tab 1 tab once daily [Active]; Multiple Vitamins Oral tab [Active]; oxybutynin chloride 10 mg Oral tr24 1 tab once daily [Active]; pantoprazole oral 1 tab daily [Active]; paroxetine HCl 40 mg Oral tab 1 tab once daily [Active]; Protonix 40 mg Oral TbEC 1 tab once daily [Active]; tramadol 50 mg Oral tab as needed [Active]; - PMHx: 18:14 Anxiety; Gastric Reflux; Hypothyroidism; kj2 Historical Immunization: - Administered Vaccines 20:27 Cephalexin PO 500 mg 9 20:27 ceFAZolin IVPB 1 grams mb9 20:27 Mupirocin Topical Ointment 2 % 1 application 9 20:27 Potassium PO Effervescent Tablet 25 mEq 9 20:06 Lidocaine-Epinephrine Infiltration -1%: (1:100,000) 10 ml mb9 19:01 NS 0.9% IV 1000 ml mb9 18:57 Tetanus Toxoid,Adsorbed IM 0.5 ml 9 Outdoor Adventure Instructor: [employer]; Exp: MonJul 31 2026; Lot #: [id number]; Series: 1 of 1; Patient Consent: Obtained; Date/Time: ; Source Name: Aaliyah Brice Dennis; Source Relationship: Self; Address Information: [address] [place] [address], [facility] [address]; ; Education: Provided; VIS Presented Date: ; VIS Publication: Tetanus/Diphtheria (Td) VIS 12/24/2013 (historic) - Infectious Disease History:: Denies. - Family history:: not pertinent. - Social history:: Smoking status: . Screenin:11 [facility] ED Fall Risk Assessment (Adult) History of falling in the last 3 months, kj2 including since admission No falls in past 3 months (0 pts) Confusion or Disorientation No (0 pts) Intoxicated or Sedated No (0 pts) Impaired Gait No (0 pts) Mobility Assist Device Used No (0 pt) Altered Elimination No (0 pt) Score/Fall Risk Level 0 - 2 = Low Risk Maintained a safe environment, Hourly rounding (assess needs \T\ fall precautionary measures) done. Abuse screen: Denies threats or abuse. Denies injuries from another. Nutritional screening: No deficits noted. Tuberculosis screening: No symptoms or risk factors identified. Assessment: 18:10 General: see triage assessment. kj2 19:00 Reassessment: No changes from previously documented assessment. Patient and/or family mb9 updated on plan of care and expected duration. Pain level reassessed. Patient is alert, oriented x 3, equal unlabored respirations, skin warm/dry/pink. 20:00 Reassessment: No changes from previously documented assessment. Patient and/or family mb9 updated on plan of care and expected duration. Pain level reassessed. Patient is alert, oriented x 3, equal unlabored respirations, skin warm/dry/pink. Vital Signs: 18:09 BP 127 / 54; Pulse 65; Resp 20; Temp 98.2; Pulse Ox 100% on R/A; kj2 20:18 BP 133 / 77; Pulse 60; Resp 18; Pulse Ox 100% on R/A; kj2 ED Course: 17:56 Patient arrived in ED. mb9 17:57 Bernadine Harding, CHANDA is Primary Nurse. kj2 18:01 Rony Reynoso MD is Attending Physician. [facility] 18:06 Triage completed. kj2 18:07 Arm band placed on. mb9 18:12 Patient has correct armband on for positive identification. Placed in gown. Bed in low kj2 position. Call light in reach. Provided Education on: call light, fall precautions. 19:00 Pelvis XRAY In Process Unspecified. EDMS 19:00 Hip Right 2 View XRAY In Process Unspecified. EDMS 19:00 Femur Right XRAY In Process Unspecified. EDMS 19:45 CT Traumagram (Head C Spine CAP wo con) In Process Unspecified. EDMS 20:17 Assisted to bathroom. kj2 20:17 Maintain EMS IV. Dressing intact. Good blood return noted. Site clean \T\ dry. Gauge \T\ kj 2 site: guaze and site clean, dry and intact. 20:48 Janice Khan MD is Referral Physician. [facility] 20:49 Assist provider with laceration repair on forehead that was between 2.6 to 7.5 cm using mb9 sutures. Set up tray. Performed by Rony Reynoso MD Dressed with Neosporin, Patient tolerated well. IV discontinued, intact, bleeding controlled, No redness/swelling at site. Pressure dressing applied. Administered Medications: 18:57 Drug: Tetanus Toxoid,Adsorbed IM 0.5 ml IM once; Provide Vaccine Information Statement mb9 (VIS). 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[employer]; Exp: MonJul 31 2026; Lot #: [id number]; Series: 1 of ; Patient Consent: Obtained; Date/Time: ; Source Name: Aaliyah Dennis; Source Relationship: Self; Address Information: [address] [place] [address], [place] [address]; ; Education: Provided; VIS Presented Date: ; VIS Publication: Tetanus/Diphtheria (Td) VIS 12/24/2013 (historic)} Route: IM; Site: right deltoid; 20:06 Follow up: Response: No adverse reaction mb9 19:01 Drug: NS 0.9% IV 1000 ml IV at 1 bolus Per protocol; 1000 mL bolus Route: IV; Rate: 1 mb9 bolus; Site: right antecubital; 20:27 Follow up: Response: No adverse reaction; IV Status: Completed infusion mb9 20:06 Drug: Lidocaine-Epinephrine Infiltration -1%: (1:100,000) 10 ml 20 ml Infiltration mb9 once; to bedside Volume: 20 ml; Route: Infiltration; 20:27 Drug: Cephalexin PO 500 mg PO once Route: PO; mb9 20:28 Follow up: Response: No adverse reaction mb9 20:27 Drug: ceFAZolin IVPB 1 grams IVPB once Route: IVPB; Site: right antecubital; mb9 20:27 Drug: Mupirocin Topical Ointment 2 % 1 application Topical once Route: Topical; Site: mb9 affected area; 20:27 Drug: Potassium PO Effervescent Tablet 25 mEq PO once; dissolve in 4 ounces of water or mb9 juice Route: PO; 20:28 Follow up: Response: No adverse reaction krunal Medication: 18:12 VIS not applicable for this client. kj2 Outcome: 20:48 Discharge ordered by . heriberto 20:50 Discharged to home ambulatory, with family, krunal 20:50 Condition: stable 20:50 Discharge instructions given to patient, Instructed on discharge instructions, follow up and referral plans. Demonstrated understanding of instructions, follow-up care, medications, Prescriptions given X 3, 21:02 Patient left the ED. kj2 Signatures: Dispatcher [employer] EDMS Rony Reynoso MD MD cha Wilkerson, Marycruz Ribeiro, RN RN mb9 Bernadine Harding RN RN kj2
--- NOTE | 2024-06-25 20:49 | EDPHYS ---
Physician Documentation [facility] Name: Aaliyah Dennis Age: 73 yrs Sex: Female : 1950 Arrival Date: 06/25/2024 Time: 17:39 Bed 20 Private MD: ED Physician Rony Reynoso HPI: 06/25 18:52 This 73 yrs old Female presents to ER via EMS with complaints of Fall Injury. heriberto 18:52 Details of fall: The patient fell from an upright position, while running, while heriberto walking. Onset: The symptoms/episode began/occurred just prior to arrival. Associated injuries: The patient sustained injury to the head, right hip, decreased range of motion. Severity of symptoms: At their worst the symptoms were moderate, in the emergency department the symptoms are unchanged. The patient has not experienced similar symptoms in the past. Historical: - Allergies: 18:14 Morphine; kj2 18:14 STINGS - must carry EPI pen; kj2 18:14 Sulfa (Sulfonamide Antibiotics); kj2 - Home Meds: 18:14 aspirin 81 mg Oral chew 1 tab once daily [Active]; ciclopirox 0.77 % Topical crea daily kj2 [Active]; cyclobenzaprine 10 mg Oral tab daily [Active]; fenoprofen 600 mg Oral tab 1 tab 3 times per day [Active]; levothyroxine 112 mcg tab 1 tab once daily for Hypothyroidism [Active]; meloxicam 15 mg Oral tab 1 tab once daily [Active]; Multiple Vitamins Oral tab [Active]; oxybutynin chloride 10 mg Oral tr24 1 tab once daily [Active]; pantoprazole oral 1 tab daily [Active]; paroxetine HCl 40 mg Oral tab 1 tab once daily [Active]; Protonix 40 mg Oral TbEC 1 tab once daily [Active]; tramadol 50 mg Oral tab as needed [Active]; - PMHx: 18:14 Anxiety; Gastric Reflux; Hypothyroidism; kj2 - Infectious Disease History:: Denies. - Family history:: not pertinent. - Social history:: Smoking status: . ROS: 18:54 Constitutional: Negative for fever, chills, and weight loss, Eyes: Negative for injury, heriberto pain, redness, and discharge, ENT: Negative for injury, pain, and discharge, Neck: Negative for injury, pain, and swelling, Cardiovascular: Negative for chest pain, palpitations, and edema, Respiratory: Negative for shortness of breath, cough, wheezing, and pleuritic chest pain, Abdomen/GI: Negative for abdominal pain, nausea, vomiting, diarrhea, and constipation, Back: Negative for injury and pain, : Negative for injury, bleeding, discharge, and swelling, Neuro: Negative for headache, weakness, numbness, tingling, and seizure, Psych: Negative for depression, anxiety, suicide ideation, homicidal ideation, and hallucinations, Allergy/Immunology: Negative for hives, rash, and allergies, Endocrine: Negative for neck swelling, polydipsia, polyuria, polyphagia, and marked weight changes, Hematologic/Lymphatic: Negative for swollen nodes, abnormal bleeding, and unusual bruising, 18:54 MS/extremity: Positive for decreased range of motion, pain, swelling, tenderness, of the right femoral area and right hip, 18:54 Skin: Positive for laceration(s), of the forehead, Exam: 18:54 Constitutional: This is a well developed, well nourished patient who is awake, alert, heriberto and in no acute distress. Eyes: Pupils equal round and reactive to light, extra-ocular motions intact. Lids and lashes normal. Conjunctiva and sclera are non-icteric and not injected. Cornea within normal limits. Periorbital areas with no swelling, redness, or edema. ENT: Nares patent. No nasal discharge, no septal abnormalities noted. Tympanic membranes are normal and external auditory canals are clear. Oropharynx with no redness, swelling, or masses, exudates, or evidence of obstruction, uvula midline. Mucous membranes moist. Neck: Trachea midline, no thyromegaly or masses palpated, and no cervical lymphadenopathy. Supple, full range of motion without nuchal rigidity, or vertebral point tenderness. No Meningismus. Chest/axilla: Normal chest wall appearance and motion. Nontender with no deformity. No lesions are appreciated. Cardiovascular: Regular rate and rhythm with a normal S1 and S2. No gallops, murmurs, or rubs. Normal PMI, no JVD. No pulse deficits. Respiratory: Lungs have equal breath sounds bilaterally, clear to auscultation and percussion. No rales, rhonchi or wheezes noted. No increased work of breathing, no retractions or nasal flaring. Abdomen/GI: Soft, non-tender, with normal bowel sounds. No distension or tympany. No guarding or rebound. No evidence of tenderness throughout. Back: No spinal tenderness. No costovertebral tenderness. Full range of motion. Female : Normal external genitalia. Neuro: Awake and alert, GCS 15, oriented to person, place, time, and situation. Cranial nerves II-XII grossly intact. Motor strength 5/5 in all extremities. Sensory grossly intact. Cerebellar exam normal. Normal gait. Psych: Awake, alert, with orientation to person, place and time. Behavior, mood, and affect are within normal limits. 18:54 Head/face: Noted is a laceration(s), that is deep, 2.5 cm(s), swelling, Vital Signs: 18:09 BP 127 / 54; Pulse 65; Resp 20; Temp 98.2; Pulse Ox 100% on R/A; kj2 20:18 BP 133 / 77; Pulse 60; Resp 18; Pulse Ox 100% on R/A; kj2 Laceration: 18:54 Wound Repair of 2.5cm ( 1.0in ) subcutaneous laceration to forehead. Linear shaped.. heriberto Distal neuro/vascular/tendon intact. Anesthesia: Local anesthetic administered with 8 mls of 1% lidocaine w/ Epi. Wound prep: Moderate cleansing by me. Skin closed with 4 5-0 Prolene using interrupted sutures and sterile technique. Dressed with Neosporin. Patient tolerated well. MDM: 18:01 Patient medically screened. heriberto 18:56 Differential diagnosis: abrasion, closed head injury, contusion, fracture, laceration, heriberto multiple trauma, sprain, strain. Data reviewed: vital signs, nurses notes, lab test result(s), radiologic studies, CT scan, plain films. Consideration of Admission/Observation Escalation of care including admission/observation considered. I considered the following discharge prescriptions or medication management in the emergency department Medications were administered in the Emergency Department. See MAR. Independent interpretation of the following test(s) in the Emergency Department X-Ray: My interpretation is x ray, ct . Test considered but Not performed: EKG: no ekg. Historians other than the Patient: Family Member: family well informed. Care significantly affected by the following chronic conditions: anxiety, gastric reflux, hypothyroid. 06/25 18:31 Order name: Basic Metabolic Panel; Complete Time: 20:15 [facility] 06/25 18:31 Order name: CBC with Diff; Complete Time: 20:15 [facility] 06/25 18:31 Order name: CT Traumagram (Head C Spine CAP wo con); Complete Time: 20:15 [facility] 06/25 18:31 Order name: Pelvis XRAY; Complete Time: 20:15 [facility] 06/25 18:31 Order name: Hip Right 2 View XRAY; Complete Time: 20:15 [facility] 06/25 18:52 Order name: Femur Right XRAY; Complete Time: 20:15 [facility] 06/25 18:31 Order name: Labs collected and sent; Complete Time: 18:59 [facility] 06/25 18:31 Order name: Dressing - Wound; Complete Time: 18:57 [facility] 06/25 18:31 Order name: Gloves, Sterile; Complete Time: 18:57 [facility] 06/25 18:31 Order name: Prolene, Sutures; Complete Time: 18:57 [facility] 08 18:31 Order name: Setup Suture Tray; Complete Time: 18:57 [facility] 06/25 20:15 Order name: Ice pack; Complete Time: 20:17 [facility] Administered Medications: 18:57 Drug: Tetanus Toxoid,Adsorbed IM 0.5 ml IM once; Provide Vaccine Information Statement mb9 (VIS). {[employer]: [employer]; Exp: MonJul 31 2026; Lot #: [id number]; Series: 1 of ; Patient Consent: Obtained; Date/Time: ; Source Name: Aaliyah Dennis; Source Relationship: Self; Address Information: [address] [place] [address], [place] [address]; ; Education: Provided; VIS Presented Date: ; VIS Publication: Tetanus/Diphtheria (Td) VIS 12/24/2013 (historic)} Route: IM; Site: right deltoid; 20:06 Follow up: Response: No adverse reaction mb9 19:01 Drug: NS 0.9% IV 1000 ml IV at 1 bolus Per protocol; 1000 mL bolus Route: IV; Rate: 1 mb9 bolus; Site: right antecubital; 20:27 Follow up: Response: No adverse reaction; IV Status: Completed infusion mb9 20:06 Drug: Lidocaine-Epinephrine Infiltration -1%: (1:100,000) 10 ml 20 ml Infiltration mb9 once; to bedside Volume: 20 ml; Route: Infiltration; 20:27 Drug: Cephalexin PO 500 mg PO once Route: PO; mb9 20:28 Follow up: Response: No adverse reaction mb9 20:27 Drug: ceFAZolin IVPB 1 grams IVPB once Route: IVPB; Site: right antecubital; mb9 20:27 Drug: Mupirocin Topical Ointment 2 % 1 application Topical once Route: Topical; Site: mb9 affected area; 20:27 Drug: Potassium PO Effervescent Tablet 25 mEq PO once; dissolve in 4 ounces of water or mb9 juice Route: PO; 20:28 Follow up: Response: No adverse reaction mb9 Disposition Summary: 06/25/24 20:48 Discharge Ordered Notes: Location: Home heriberto Problem: new heriberto Symptoms: have improved heriberto Condition: Stable heriberto Diagnosis - Fall on same level, unspecified heriberto - Pain in right hip heriberto - Pain in right leg heriberto - Laceration without foreign body of other part of head - forehead heriberto - Fracture of nasal bones heriberto Followup: heriberto - With: Private Physician - When: 2 - 3 days - Reason: Recheck today's complaints, Continuance of care, Re-evaluation by your physician Followup: heriberto - With: Janice Khan MD - When: 2 - 3 days - Reason: Recheck today's complaints, Re-evaluation by your physician Discharge Instructions: - Discharge Summary Sheet heriberto - Joint Pain heriberto - Arthritis heriberto - Fall Prevention in the Home, Adult heriberto - Laceration Care, Adult heriberto - Facial Laceration heriberto - Musculoskeletal Pain heriberto - Nasal Fracture heriberto - How to Use Cold Therapy, [id number] heriberto - Laceration Care, Adult, [id number] heriberto - Facial Laceration, [id number] heriberto - Fall Prevention in the Home, Adult, [id number] heriberto - Hip Pain heriberto - Nasal Fracture, [id number] heriberto Forms: - Medication Reconciliation Form heriberto - Antibiotic Education heriberto - Prescription Opioid Use heriberto - Patient Portal Instructions [facility] - Leadership Thank You Letter [facility] Prescriptions: - Centany 2 % Topical ointment - apply 1 application TOPICAL route 2-3 times daily; 15 gram tube; Refills: 0, heriberto Product Selection Permitted - Cephalexin 500 mg Oral capsule - take 1 capsule ORAL route every 6 hours for 7 days; 28 capsule; Refills: 0, heriberto Product Selection Permitted - Tylenol 325 mg Oral tablet - take 2 tablets ORAL route every 6 hours as needed; 40 tablet; Refills: 0, heriberto Product Selection Permitted Signatures: Dispatcher [employer] EDRony Shin MD MD cha Wilkerson, Marycruz Ribeiro RN RN mb9 Bernadine Harding RN RN kj2 Corrections: (The following items were deleted from the chart) 18:31 18:31 Head C Spine Cap Wo Con+CT.RAD.BRZ ordered. EDMS EDMS 18:31 18:31 Pelvis+RAD.RAD.BRZ ordered. EDMS EDMS 18:32 18:31 Hip Right 2 View+RAD.RAD.BRZ ordered. EDMS EDMS
[2024-06-26 08:16] VITALS: TEMP 98.2; O2SAT 100
[2024-06-26 08:18] VITALS: BP 133/77
== END 2024-06-25 21:02 | disposition home or self-care (01) ==
LOC: ER 17:39
DX: S01.81XA Laceration without foreign body of other part of head, initial encounter (principal); S02.2XXA Fracture of nasal bones, initial encounter for closed fracture; M25.551 Pain in right hip; M79.604 Pain in right leg; W18.30XA Fall on same level, unspecified, initial encounter; Z23 Encounter for immunization
CPT/HCPCS: 96361; 12011; 85025; 80048; 36415; 70450; 71250; 72125; 72170; 73502; 73552; 90471; 96374; 99284; J2001; J7030; J0690; 86850; 86900; 86901